=== PATIENT | male | born 1935 | race Caucasian/White ===

== ENCOUNTER 2018-09-22 04:18 | Inpatient (IN) | payer MEDICARE ==
[2018-09-22 04:56] LABS: #Basophils 0.1 thou/uL (0.0-0.2); #Eosinphils 0.2 thou/uL (0.0-0.7); #Lymphocytes 3.4 thou/uL (1.20-3.40); #Monocytes 1.2 thou/uL (0.11-0.59); #Neutrophils 9.5 thou/uL (1.40-6.50); %Basophils 0.4 % (0.0-1.0); %Eosinophils 1.6 % (0.0-10.0); %Lymphocytes 23.9 % (21.0-51.0); %Neutrophils 66.1 % (42.0-75.0); Hemoglobin 13.5 g/dL (14.0-18.0); Mean Corpuscular HGB CONC 34.3 g/dL (32.0-36.0); Mean Corpuscular Hemoglobin 33.5 pg (27.0-31.0); Mean Corpuscular Volume 97.6 fL (78.0-98.0); Mean Platelet Volume 7.2 fL (7.4-10.4); Platelet Count 210 thou/uL (130-400); RBC Distribution Width 11.9 % (11.5-14.5); Red Blood Cell (RBC) Count 4.03 mill/uL (4.70-6.10); White Blood Cell (WBC) Count 14.3 thou/uL (4.8-10.8)
[2018-09-22 05:10] LABS: Bilirubin Negative (Negative); Blood, Urine Negative (Negative); Clarity CLEAR (Clear); Glucose, Urine (Dipstick) Negative (Negative); Leukocyte Negative (Negative); Nitrite Negative (Negative); Protein, Urine (Dipstick) Negative (Neg-Trace); Urobilinogen 0.2 mg/dL (0.2-1.0); pH, Urine 6.5 (5.0-9.0)
[2018-09-22 05:22] LABS: ALT (SGPT) 25 U/L (8-55); AST (SGOT) 20 U/L (5-34); Alkaline Phosphatase 89 U/L (40-150); Anion Gap 12 mmol/L (10-20); BUN (Urea Nitrogen) 19 mg/dL (8.4-25.7); Bilirubin, Total 0.4 mg/dL (0.2-1.2); CK (CPK) 40 U/L (30-200); CKMB 1.9 ng/mL (0-6.6); Calc. Creatinine Clearance 0 mL/min (70-130); Calcium 8.9 mg/dL (7.8-10.44); Carbon Dioxide 20 mmol/L (23-31); Chloride 104 mmol/L (98-107); Estimated GFR-MDRD 73; Globulin 3.1 g/dL (2.4-3.5); Glucose 104 mg/dL (83-110); Lipase 32 U/L (8-78); Magnesium 2.3 mg/dL (1.6-2.6); Potassium 4.4 mmol/L (3.5-5.1); Protein, Total 7.1 g/dL (5.8-8.1); Sodium 132 mmol/L (136-145); Troponin I 0.024 ng/mL (< 0.028)
[2018-09-22] MEDS ORDERED: Metoprolol Tartrate 5 MG/5 ML VIAL ONE (05:34)
[2018-09-22] MEDS ORDERED: Magnesium 2 GM/50 ML 2 GM in Premix Bag 1 BAG IVPB SCH (05:45)
[2018-09-22] MEDS ORDERED: Sodium Chloride 0.45% 1,000 ML IV SCH (07:24)
[2018-09-22 07:36] VITALS: BMI 28.5
--- NOTE | 2018-09-22 08:43 | RAD ---
CHEST 1 VIEW: Date: 09/22/18 INDICATION: Heart palpitations. COMPARISON: Prior dated 07/15/16. IMPRESSION: Right subclavian central venous catheter has been removed. Aortic valvular prosthesis is unchanged. C ardiomegaly persists. Lungs are clear. Costophrenic angles are excluded. No pneumothorax is evident. POS: [facility]
[2018-09-22] MEDS ORDERED: Aspirin 325 MG TAB PO PRN (08:47)
[2018-09-22] MEDS ORDERED: Acetaminophen 325 MG TAB PO PRN (08:47)
[2018-09-22] MEDS ORDERED: Acetaminophen 650 MG Suppository PR PRN (08:47)
[2018-09-22] MEDS ORDERED: PROVENTIL INHALER 6.7 G (200 INHALATIONS) INH PRN (08:47)
[2018-09-22] MEDS ORDERED: Aspirin 325 mg Enteric Coated Tablet PO SCH (09:00)
[2018-09-22] MEDS ORDERED: Enoxaparin Sodium 40 MG/0.4 ML SYRINGE SC SCH (09:30)
[2018-09-22] MEDS: Ramipril 5 MG CAP PO SCH (09:45)
[2018-09-22 09:52] LABS: CKMB 1.8 ng/mL (0-6.6); Troponin I 0.027 ng/mL (< 0.028)
[2018-09-22] MEDS: Nitroglycerin 2% Ointment 1 INCH/1 GM Packet TOP SCH ×2 (14:54→21:55)
[2018-09-22] MEDS: Carvedilol 6.25 MG TAB PO SCH (16:26)
[2018-09-22 18:03] LABS: Troponin I 0.023 ng/mL (< 0.028)
[2018-09-22] MEDS: Simvastatin 40 MG TAB PO SCH (21:15)
[2018-09-22] MEDS: Ezetimibe 10 MG TAB PO SCH (21:16)
[2018-09-23 01:07] LABS: CKMB 1.4 ng/mL (0-6.6); Troponin I 0.023 ng/mL (< 0.028)
[2018-09-23 05:56] LABS: #Basophils 0.1 thou/uL (0.0-0.2); #Eosinphils 0.4 thou/uL (0.0-0.7); #Lymphocytes 3.1 thou/uL (1.20-3.40); #Neutrophils 6.3 thou/uL (1.40-6.50); %Basophils 0.8 % (0.0-1.0); %Eosinophils 3.3 % (0.0-10.0); %Lymphocytes 28.8 % (21.0-51.0); %Monocytes 9.2 % (0.0-10.0); %Neutrophils 57.9 % (42.0-75.0); Hemoglobin 13.7 g/dL (14.0-18.0); Mean Corpuscular HGB CONC 33.2 g/dL (32.0-36.0); Mean Corpuscular Hemoglobin 32.9 pg (27.0-31.0); Mean Platelet Volume 7.8 fL (7.4-10.4); Platelet Count 211 thou/uL (130-400); RBC Distribution Width 11.9 % (11.5-14.5); Red Blood Cell (RBC) Count 4.16 mill/uL (4.70-6.10); White Blood Cell (WBC) Count 10.9 thou/uL (4.8-10.8)
[2018-09-23 06:05] LABS: Anion Gap 12 mmol/L (10-20); BUN (Urea Nitrogen) 19 mg/dL (8.4-25.7); Calc. Creatinine Clearance 58 mL/min (70-130); Carbon Dioxide 23 mmol/L (23-31); Chloride 106 mmol/L (98-107); Estimated GFR-MDRD 73; Glucose 90 mg/dL (83-110); Potassium 4.8 mmol/L (3.5-5.1); Sodium 136 mmol/L (136-145)
[2018-09-23] MEDS: Nitroglycerin 2% Ointment 1 INCH/1 GM Packet TOP SCH ×4 (06:42→21:21)
[2018-09-23] MEDS: Carvedilol 6.25 MG TAB PO SCH ×2 (08:29→17:34)
[2018-09-23] MEDS: Ramipril 5 MG CAP PO SCH (08:29)
[2018-09-23] MEDS ORDERED: Enoxaparin Sodium 40 MG/0.4 ML SYRINGE SC SCH (09:00)
[2018-09-23] MEDS ORDERED: Enoxaparin Sodium 30 MG/0.3 ML SYRINGE SC SCH (11:30)
[2018-09-23] MEDS ORDERED: Dronedarone HCl 400 MG TAB PO SCH (12:00)
[2018-09-23] MEDS ORDERED: Diltiazem 125 MG in Sodium Chloride 0.9% 100 ML IVPB SCH ×2 (12:00→15:30)
[2018-09-23] MEDS: Dronedarone HCl 400 MG TAB PO SCH (17:34)
[2018-09-23] MEDS ORDERED: Enoxaparin Sodium 60 MG/0.6 ML SYRINGE SC SCH (21:00)
[2018-09-23] MEDS: Ezetimibe 10 MG TAB PO SCH (21:20)
[2018-09-23] MEDS: Simvastatin 40 MG TAB PO SCH (21:20)
[2018-09-23] MEDS: Apixaban 5 MG TAB PO SCH (21:20)
--- NOTE | 2018-09-24 07:49 | PRG ---
DATE OF SERVICE: 09/23/2018 SUBJECTIVE: The patient reports that he had been feeling well again until about 8 o'clock this morning when he started having some burning pain in his left chest. The patient reports that he had this in the past prior to his diagnosis of coronary artery disease and valve disease. He subsequently underwent a 1-vessel bypass and aortic valve replacement. The patient states that on at 1:30 in the afternoon, he was jogging from one room in his house to another, which he is prone to do from [id number] for a bit of exercise. At that time, he had the onset of the sensation of tachycardia, palpitations, and burning in his chest again. He feels confident that is the moment that he went back into atrial fibrillation. He has a history of atrial fibrillation following his bypass surgery that was temporary. He underwent cardioversion, which was only temporarily successful. His atrial fibrillation recurred fairly promptly. He was to come back the next day for a repeat cardioversion; however, he converted back to sinus rhythm at that time and has been in sinus rhythm since. The patient had atrial fibrillation with rapid ventricular response. In the emergency department, he received 2.5 mg of IV Lopressor and his heart rate improved. He has had fairly normal heart rate through the night, but is back in tachycardia this morning. SUBJECTIVE: VITAL SIGNS: Temperature 98.3, pulse 130s, respirations 20, O2 saturation 99% on room air, blood pressure is 150/107. GENERAL APPEARANCE: Age-appropriate male. He is in no distress. He is awake and alert, conversant. HEART: His heart is tachycardic and irregular without murmurs. LUNGS: Clear bilaterally. ABDOMEN: Soft, nontender, and nondistended. EXTREMITIES: Warm and dry. NEURO/PSYCH: Nonfocal. The patient has normal affect and behavior. CURRENT LABORATORY DATA: White count 10.9, hemoglobin 13.7, platelets 211. Chemistries are normal. Troponins stable at 0.023. Calcium 9, magnesium 2. Again, monitor shows that the patient in atrial fibrillation with RVR. IMPRESSION AND PLAN: 1. Atrial fibrillation with rapid ventricular response. We will give the patient a dose of IV Cardizem now. Did discuss with Dr. Hardy, he will be seeing the patient this morning. The patient's echocardiogram revealed concentric LVH, EF of 60% to 65%, moderately dilated left atrium, moderately enlarged right atrium, moderate MR, normally functioning bioprosthetic aortic valve, [id number] TR. If the patient responds to Cardizem adequately, may need to consider a drip, if Cardiology is not seen him and had other plans at that point, certainly the patient may still be a candidate for cardioversion. 2. Chest pain. The patient is reporting some burning pain in the left chest area. This seems to be associated with his tachycardia and atrial fibrillation. Primarily, he need to get rate control. The only concerning is that the patient had these symptoms prior to his previous bypass. He reports that he had a 50% lesion that was bypassed, but had another 20% lesion at that time that was not felt to be culprit and was not addressed. The patient continues to smoke and therefore, certainly at risk of developing further coronary artery disease. 3. Hypertension. The patient's blood pressure was elevated initially. It seems to be higher now as well, though was good throughout the night. We will see how he response to the Cardizem. He was on metoprolol at home. He has been changed to Coreg 12.5 b.i.d. we will await Cardiology input before pushing that any further. We will also continue with his Altace. 4. History of hyperlipidemia. Continue with Vytorin. 5. History of chronic obstructive pulmonary disease, on ProAir HFA. Will continue with albuterol p.r.n. 6. The patient is currently only on prophylactic doses of anticoagulation. We will give him an additional Lovenox now to get him back to the therapeutic range given his atrial fibrillation. Job ID: [id number]
[2018-09-24] MEDS: Apixaban 5 MG TAB PO SCH ×2 (08:15→21:38)
[2018-09-24] MEDS: Ramipril 5 MG CAP PO SCH (08:16)
[2018-09-24] MEDS: Dronedarone HCl 400 MG TAB PO SCH ×2 (08:16→17:04)
[2018-09-24] MEDS: Carvedilol 6.25 MG TAB PO SCH (08:16)
--- NOTE | 2018-09-24 10:15 | CON ---
DATE OF CONSULTATION: HISTORY OF PRESENT ILLNESS: Terry Inman is an 82-year-old white male, patient of Dr. Landers. In June 2016, he underwent aortic valve replacement for aortic stenosis with a #23 Magna bioprosthetic valve as well as CABG x1 of the saphenous vein graft to distal right coronary and ligation of left atrial appendage. He did develop atrial fibrillation postoperatively and was placed on amiodarone. He continued to be in atrial fibrillation and underwent transesophageal echo, which revealed a closed left atrial appendage with miniscule flow through the closure and there was no thrombus in left atrium. He underwent electrical cardioversion, but recurred with atrial fibrillation. Several days later he again underwent electrical cardioversion and retuned to sinus rhythm. Since that time, the amiodarone has been discontinued. He has had two or three episodes over the last year, where he feels heart beating very rapidly; however, it would return to normal within approximately 30 minutes. In September 2017, he underwent Lexiscan Cardiac PET scan, which was normal without evidence of ischemia. On September 20, he was walking in the house and had onset of very rapid heart beat as well as some burning on the left side of his chest and mild shortness of breath. This continued; he ultimately came to the emergency room for further care. He continues to have some of the episodes of left-sided chest burning, which appears to correlate with rapid heart rate. PAST MEDICAL HISTORY: Coronary artery disease; history of aortic stenosis, status post aortic valve replacement; hypertension; chronic bronchitis; emphysema. PAST SURGICAL HISTORY: CABG. HOME MEDICATIONS: 1. Altace 10 mg daily. 2. Aspirin 325 daily. 3. Atenolol 100 mg daily. 4. Simvastatin/Zetia daily. ALLERGIES: PENICILLIN. SOCIAL HISTORY: He continues to smoke 3/4 of pack per day. REVIEW OF SYSTEMS: Unremarkable. PHYSICAL EXAMINATION: VITAL SIGNS: Blood pressure 150/87, pulse of 129, irregularly irregular. HEENT: PERRL. NECK: Supple. CHEST: Clear. CARDIAC: Heart rhythm is irregularly irregular and tachycardiac at times. S1 and S2 are normal without any S3 or S4. There was a 2/6 systolic ejection murmur in the aortic area. ABDOMEN: Normal bowel sounds without tenderness or organomegaly. EXTREMITIES: Revealed no clubbing, cyanosis, or edema. NEUROLOGIC: Grossly intact. LABORATORY DATA: EKG reveals atrial fibrillation with rapid ventricular response, left axis deviation, and possible septal infarction. Cardiac enzymes have been normal. Sodium 136, potassium 4.8, chloride 106, carbon dioxide 23, BUN 19, and creatinine 0.99. TSH is normal. Hemoglobin 13.7, hematocrit 41.2, white count 10,900, platelets 211,000. IMPRESSION: 1. Recurrence of atrial fibrillation. He required electrical cardioversion twice after coronary artery bypass graft and aortic valve replacement. It historically sounds as if he has had one or two episodes over the last year that would last about 30 minutes. 2. Status post aortic valve replacement with bioprosthetic valve and coronary artery bypass graft x1 to the right coronary artery with ligation of left atrial appendage in June 2016. 3. Hypertension. 4. Hypercholesterolemia. 5. The patient continues to smoke. PLAN: Situation was discussed with the patient's family. It is felt that he should undergo anticoagulation. He will be started on Eliquis 5 mg b.i.d. Multaq 400 mg b.i.d. will be started and after he is adequately loaded, consideration can be given to transesophageal echo and electrical cardioversion. If, on transesophageal echo, the left atrial appendage opening continues to remain closed, then consideration will be given to permanent discontinuation of the anticoagulation. Cardizem 10 mg per hour IV will be started for better rate control. Job ID: [id number]
--- NOTE | 2018-09-24 10:44 | PDOC.PN ---
- Subjective Encounter Start Date: 09/24/18 Encounter Start Time: 10:43 Feels ok. Gets a little SOB with ambulation. Feels some palpitations time to time. - Objective Resuscitation Status - Order Detail: 09/22/18 08:42 Resuscitation Status Routine Resuscitation Status: FULL: Full Resuscitation Vital Signs & Weight: Vital Signs (12 hours) Temp Pulse Resp BP Pulse Ox 09/24/18 07:52 97.9 F 91 16 123/69 99 09/24/18 03:56 98.2 F 89 20 124/68 99 09/23/18 23:27 98.2 F 68 14 118/61 99 Weight Weight 148 lb 14.4 oz I&O: 09/23/18 09/24/18 09/25/18 06:59 06:59 06:59 Intake Total 1440 250 Output Total 1280 Balance 160 250 Result Diagrams: 09/23/18 05:26 09/23/18 05:26 Phys Exam - Physical Examination Constitutional: NAD Respiratory: no wheezing, no rales, no rhonchi, clear to auscultation bilateral Diminished BS throughout. Cardiovascular: no significant murmur, irregular Gastrointestinal: soft, non-tender, no distention, positive bowel sounds Musculoskeletal: no edema Neurological: non-focal Psychiatric: normal affect, A&O x 3 Dx/Plan (1) Atrial fibrillation Code(s): I48.91 - UNSPECIFIED ATRIAL FIBRILLATION Status: Acute Comment: Cardiology following. Started on Multaq. Rate initially tachy, but normalized. (2) Hypertension Code(s): I10 - ESSENTIAL (PRIMARY) HYPERTENSION Status: Acute Comment: Continue home meds. Altace, Coreg (3) Hyperlipidemia Code(s): E78.5 - HYPERLIPIDEMIA, UNSPECIFIED Status: Acute Comment: Continue home dose of statin and Zetia. (4) Chest pain Code(s): R07.9 - CHEST PAIN, UNSPECIFIED Status: Acute Comment: Appears to be rate related. Cardiology following. Addressing afib. - Plan * Loading on Multaq. On Eliquis. When loaded, will get SHAKIR. If atrial appendage closure is intact, DC anticoagulation and consider DCCV. * Ok for patient to ambulate as tolerated.
[2018-09-24] MEDS: Simvastatin 40 MG TAB PO SCH (21:38)
[2018-09-24] MEDS: Ezetimibe 10 MG TAB PO SCH (21:38)
[2018-09-25] MEDS: Dronedarone HCl 400 MG TAB PO SCH (08:22)
[2018-09-25] MEDS: Ramipril 5 MG CAP PO SCH (08:22)
[2018-09-25] MEDS: Apixaban 5 MG TAB PO SCH (10:15)
[2018-09-25 12:16] VITALS: BP 116/56; TEMP 97.8
== END 2018-09-25 15:08 | disposition home or self-care (01) | DRG 310 ==
LOC: ERS 04:18 → 2SW 07:18 → OBSVTOIN 09-23 13:45
PROVIDERS: ADMIT Internal Medicine; ATTEND Internal Medicine
PROC: B246ZZZ Ultrasonography of Right and Left Heart (ICD-10-PCS; principal; 2018-09-22)
DX: I48.91 Unspecified atrial fibrillation (principal); Z95.1 Presence of aortocoronary bypass graft; Z95.2 Presence of prosthetic heart valve; I25.10 Atherosclerotic heart disease of native coronary artery without angina pectoris; I10 Essential (primary) hypertension; Z79.02 Long term (current) use of antithrombotics/antiplatelets; F17.210 Nicotine dependence, cigarettes, uncomplicated; E78.5 Hyperlipidemia, unspecified; E78.2 Mixed hyperlipidemia; J44.9 Chronic obstructive pulmonary disease, unspecified; R07.9 Chest pain, unspecified
CPT/HCPCS: 36415; 71045; 80048; 80053; 81003; 82553; 83690; 83735; 84443; 84484; 85025; 93005; 93306; 96365; 96375; J1650; J7050

== ENCOUNTER 2019-04-11 10:37 | Outpatient (CLI) | payer MEDICARE ==
--- NOTE | 2019-04-11 12:19 | RAD ---
CHEST TWO VIEWS: HISTORY: Dyspnea. COMPARISON: 09/22/2018 FINDINGS: Heart size is mildly enlarged. There is a calcified granuloma in the right lung base. No pneumothor ax. No effusion. Scarring in the lung apices. The pulmonary arteries are mildly dilated. Multiple midline sternotomy wires. There are mitral naida lar calcifications. There appears to be a prosthetic aortic valve. IMPRESSION: Chronic findings. No acute intrathoracic abnormality. POS: [facility]
== END 2019-04-11 10:38 | disposition home or self-care (01) ==
LOC: RAD 10:37
PROVIDERS: ATTEND Internal Medicine Pulmonary Disease
DX: R06.00 Dyspnea, unspecified (principal); J84.10 Pulmonary fibrosis, unspecified; I51.7 Cardiomegaly; I28.1 Aneurysm of pulmonary artery; I34.8 Other nonrheumatic mitral valve disorders; J98.4 Other disorders of lung
CPT/HCPCS: 71046

== ENCOUNTER 2019-09-09 03:43 | Inpatient (IN) | payer MEDICARE ==
[2019-09-09] MEDS ORDERED: PROVENTIL INHALER 6.7 G (200 INHALATIONS) INH PRN (05:34)
[2019-09-09] MEDS ORDERED: Acetaminophen 500 MG TAB PO PRN (05:34)
[2019-09-09] MEDS ORDERED: Calcium Carbonate 500 MG ChewTAB PO PRN (05:34)
[2019-09-09] MEDS ORDERED: Ondansetron PF 4 MG/2 ML Vial IVP PRN (05:34)
[2019-09-09] MEDS ORDERED: Diabetic Tussin 200 MG/10 ML UDCUP PO PRN (05:34)
[2019-09-09] MEDS ORDERED: hydrALAZINE 20 MG/ML VIAL SLOW IVP PRN (05:34)
[2019-09-09] MEDS ORDERED: Ondansetron ODT 4 MG TAB PO PRN (05:34)
[2019-09-09] MEDS ORDERED: Benzonatate 100 MG CAP PO PRN (05:34)
[2019-09-09] MEDS ORDERED: Nitroglycerin 50 MG/250 ML BOT 250 ML IVPB SCH (05:45)
[2019-09-09 06:25] VITALS: BMI 24.3
[2019-09-09 06:31] LABS: Troponin I 0.083 ng/mL (< 0.028)
[2019-09-09] MEDS: Furosemide 40 MG/4 ML VIAL SLOW IVP SCH ×2 (07:59→15:23)
[2019-09-09] MEDS: Dronedarone HCl 400 MG TAB PO SCH ×2 (07:59→17:05)
[2019-09-09] MEDS: Apixaban 5 MG TAB PO SCH ×2 (07:59→20:49)
[2019-09-09] MEDS: Famotidine 20 MG TAB PO SCH ×2 (08:00→20:49)
[2019-09-09] MEDS: Ramipril 5 MG CAP PO SCH (08:01)
[2019-09-09] MEDS: Aspirin 81 mg Enteric Coated Tablet PO SCH (08:01)
[2019-09-09] MEDS: Nicotine 14 MG PATCH TD SCH (08:12)
--- NOTE | 2019-09-09 08:18 | RAD ---
CHEST 2 VIEWS: DATE: 09/09/2019. COMPARISON: 04/11/2019. HISTORY: Pulmonary edema. FINDINGS: Midline sternotomy wires and mechanical cardiac valve again noted. Mild increased linear interstitia l density with pulmonary hyperinflation. New small bilateral pleural effusions. Mild increased line ar interstitial density with pulmonary hyperinflation. IMPRESSION: Interstitial prominence and pulmonary hyperinflation suggests chronic obstructive pulmonary disease i n the proper clinical setting. There are new small bilateral pleural effusions, which may be related to a degree of pulmonary edema. POS: [facility]
[2019-09-09] MEDS ORDERED: Spironolactone 25 MG TAB PO SCH (09:00)
[2019-09-09] MEDS ORDERED: Atenolol 50 MG TAB PO SCH (09:00)
--- NOTE | 2019-09-09 09:51 | HP ---
PRIMARY CARE PROVIDER: Letty Boucher MD. PRIMARY CASTING ASSISTANT: Ludin Landers MD. CHIEF COMPLAINT: Shortness of breath. HISTORY OF PRESENT ILLNESS: This is an 83-year-old male, who initially presented to [facility] complaining of severe shortness of breath, worsening in the last 12 hours. The patient noted increased shortness of breath over the last 72 hours, culminating into the last 12 hours, requiring him to sit up and take deep breaths without relief. The patient denied any trauma, fever, recent travel or family members with illness. The patient denied any increased lower extremity swelling, but noted worsening shortness of breath with mild or minimal exertion. The patient states he was hyperventilating and struggling for air. The family became concerned calling EMS personnel at which point patient was evaluated in the [facility]. Upon presentation in the emergency room, the patient's blood pressure was noted 268/129 with a respiratory rate of 40 and an O2 saturation of 88% on room air. Initial chest imaging showed infiltrate in the right lower lobe and patient was treated with oxygen supplementation in addition to magnesium sulfate IV, Solu-Medrol, Lasix 40 mg IV push, DuoNeb and initiated on a nitroglycerin drip. The patient was also placed on BiPAP noninvasive mechanical ventilation initially, however, was able to wean off by the time he was transferred to [facility] Emergency Room. The patient denies having any similar events in the past or difficulty with pulmonary edema. The patient does admit to history of atrial fibrillation, treated with various medications including current Multaq, Tenormin, and Eliquis. The patient denied any specific change to his activity level but does admit to increased cough with the recent cold weather changes. The patient does admit to continuing to smoke up to a pack of cigarettes daily over the last 30 years. PAST MEDICAL HISTORY: 1. Tobacco abuse, ongoing. 2. Chronic obstructive pulmonary disease. 3. Hypertension. 4. Coronary artery disease. 5. Chronic bronchitis. 6. Chronic anticoagulation with Eliquis. 7. History of paroxysmal atrial fibrillation. 8. Moderate to severe aortic stenosis status post aortic valve replacement. 9. Dyslipidemia. PAST SURGICAL HISTORY: 1. Status post cardiac catheterization. 2. Status post coronary artery bypass grafting. 3. Status post electrical cardioversion secondary to atrial fibrillation. CURRENT MEDICATIONS: 1. Aspirin 325 mg p.o. daily. 2. Tenormin 100 mg p.o. daily. 3. Ramipril 10 mg p.o. daily. 4. Vytorin 10/40 mg 1 tablet p.o. daily. 5. ProAir HFA 2 puffs inhaled q.6 hours p.r.n. 6. Multaq 400 mg p.o. b.i.d. 7. Eliquis 5 mg p.o. b.i.d. ALLERGIES: PENICILLIN. FAMILY HISTORY: Father with myocardial infarction, at 74 years of age. Mother with complications of chronic kidney disease. SOCIAL HISTORY: The patient is accompanied by his and daughter in the emergency room. Smokes up to a pack of cigarettes daily for 50+ years. Occasional alcohol and no illicit drugs. Functional of all activities of daily living. REVIEW OF SYSTEMS: CONSTITUTIONAL: Negative for weight loss or gain, ability to conduct usual activities. SKIN: Negative for rash, itching. EYES: Negative for double vision, pain. ENT/MOUTH: Negative for nose bleeding, neck stiffness, pain, tenderness. CARDIOVASCULAR: Negative for palpitations, dyspnea on exertion, orthopnea. RESPIRATORY: Negative for shortness of breath, wheezing, cough, hemoptysis, fever or night sweats. GASTROINTESTINAL: Negative for poor appetite, abdominal pain, heartburn, nausea, vomiting, constipation, or diarrhea. GENITOURINARY: Negative for urgency, frequency, dysuria, nocturia. MUSCULOSKELETAL: Negative for pain, swelling. NEUROLOGIC/PSYCHIATRIC: Negative for anxiety, depression. ALLERGY/IMMUNOLOGIC: Negative for skin rash, bleeding tendency. Otherwise negative except as stated per HPI. PHYSICAL EXAMINATION: VITAL SIGNS: On admission, blood pressure 268/129, pulse 88, respiratory rate 40, temperature 98.3 degrees Fahrenheit, O2 saturation 88% on room air. GENERAL APPEARANCE: This is an 83-year-old male, alert and oriented x3, pleasant, responsive, in no acute distress. HEENT: Pupils are equal, round, reactive to light and accommodation. Extraocular muscles are intact. No scleral icterus. No conjunctival injection. Nares patent. OP is clear. Teeth in fair repair. NECK: Supple. No cervical adenopathy. No thyromegaly. No carotid bruits. No JVD appreciated. Cervical spine with full active and passive range of motion. No meningeal signs noted. CHEST: Diminished breath sounds in the bases bilaterally with occasional crackles, right greater than left lung base. CARDIOVASCULAR: S1, S2 with 1 to 2/6 systolic ejection murmur in the right upper sternal border. ABDOMEN: Rounded, soft, nontender, and nondistended. Bowel sounds are positive in all 4 quadrants. There is no hepatosplenomegaly. No abdominal bruits, no rebound or guarding appreciated. EXTREMITIES: Warm and dry with fair turgor. No clubbing, cyanosis, or asymmetric edema appreciated. Pulses are palpable distally at the dorsalis pedis, posterior tibial, and popliteal arteries bilaterally. Capillary refill less than 2 seconds. NEUROLOGIC: Cranial nerves 2 through 12 are grossly intact. No focal or lateralizing signs appreciated. PERTINENT LABORATORY AND X-RAY FINDINGS: Sodium 136, potassium 5.0, chloride 108, CO2 of 19, BUN 15, creatinine 1.16, estimated GFR of 60, glucose 138, and calcium 9.3. LFTs within normal limits. Troponin I 0.012. BNP 1083, previously noted 459 on 07/09/2016. CBC showed a white blood cell count of 12.8, hemoglobin 12.6, hematocrit 39.2, MCV 101, platelet count 176 with 68% neutrophils. Venous blood gas dated 09/09/2019 showed a pH of 7.42, pCO2 of 27, PO2 of 214, bicarb 17.3. Portable chest x-ray dated 09/09/2019 showed right lower lobe infiltrate with associated pulmonary edema and questionable early infiltrate, right greater than left. EKG dated 09/09/2019, by my interpretation, shows sinus mechanism, heart rates in the 80s, normal R-wave progression noted in the precordial leads. Peak T-waves in leads V3 through V6. ASSESSMENT AND PLAN: 1. Acute congestive heart failure exacerbation. The patient will be admitted to the Critical Care Unit. The patient with apparent flash pulmonary edema, improved with IV Lasix and aggressive pulmonary supportive management. Check 2D transthoracic echocardiogram. Exact etiology unclear. Consult Cardiology Service in the a.m. Continue Lasix 40 mg IV b.i.d. Check magnesium and TSH level. 2. Acute hypoxic respiratory failure secondary to #1. Initial management with BiPAP noninvasive mechanical ventilation, transitioning to oxygen via nasal cannula. Improved after IV Lasix administration. Continue oxygen support and monitor clinical response. 3. Acute kidney injury on chronic kidney disease stage 3. Avoid nephrotoxic agents and limit contrast exposure. Serial creatinine monitoring. 4. Chronic anticoagulation with Eliquis. Continue Eliquis 5 mg p.o. b.i.d. 5. Tobacco abuse. We will offer smoking cessation resources prior to discharge. Nicotine patch transdermally daily. 6. Prophylaxis. SCDs while in bed. Pepcid 20 mg p.o. b.i.d. CODE STATUS: Full. Surrogate medical decision maker is the patient's spouse. Job ID: [id number]
--- NOTE | 2019-09-09 10:09 | CON ---
DATE OF CONSULTATION: HISTORY OF PRESENT ILLNESS: The patient is an 83-year-old gentleman with a history of coronary artery disease status post coronary artery bypass graft surgery and aortic valve replacement, who presents with increasing dyspnea. The patient has a long history of coronary artery disease status post coronary artery bypass graft surgery x1 and aortic valve replacement in 2016. The patient also has a history of atrial fibrillation. He had been previously treated with Multaq. He also has undergone left atrial appendage ligation. The patient was in his usual state of health when he noted having increasing dyspnea. The patient is noted having increasing dyspnea. He states he had PND and orthopnea. The patient also reported some burning in his chest. The patient denies having any present chest discomfort. PAST MEDICAL HISTORY: 1. Coronary artery disease. 2. Aortic valve replaced. 3. Dyslipidemia. 4. Emphysema. PAST SURGICAL HISTORY: He has had coronary artery bypass graft surgery. ALLERGIES: PENICILLIN. SOCIAL HISTORY: Long history of tobacco abuse. PHYSICAL EXAMINATION: GENERAL: This is a middle-aged gentleman with a blood pressure 135/53. NECK: No jugular venous distention. LUNGS: A few crackles in both bases. HEART: Regular rate and rhythm. Normal S1 and S2. 2/6 systolic murmur. ABDOMEN: Nondistended. EXTREMITIES: No edema. VASCULAR: Radial pulses, 2+. LABORATORY DATA: Sodium 136, potassium 5.0, chloride 109, bicarbonate was 19, BUN 15, creatinine 1.1. Troponin 0.03. His white blood cell count 12.8, hemoglobin 12.6, hematocrit 39.2, and his platelets 176. His EKG revealed him to have normal sinus rhythm with sinus arrhythmia and left anterior fascicular block. IMPRESSION: 1. Hypertensive crisis. 2. History of congestive heart failure secondary to diastolic dysfunction. 3. History of aortic valve replacement. 4. History of aortic coronary artery bypass graft surgery. 5. History of paroxysmal atrial fibrillation. 6. Status post left atrial appendage ligation. 7. Continued tobacco abuse. This gentleman presented with a hypertensive crisis. His systolic blood pressure was documented over 250. The patient states he has been compliant with his medications and low-sodium diet. From a cardiac standpoint, he is on IV nitroglycerin. The patient will need to be on diuretics and have better monitor on his blood pressure. We would recommend adding probably spironolactone. We will follow this patient with you through his hospitalization. Critical care note time 1 hour. Please call my office. Job ID: [id number]
[2019-09-09 12:52] LABS: Troponin I 0.046 ng/mL (< 0.028)
[2019-09-09] MEDS: Simvastatin 40 MG TAB PO SCH (20:49)
[2019-09-09] MEDS: Ezetimibe 10 MG TAB PO SCH (20:49)
[2019-09-09] MEDS ORDERED: Non-Formulary Item 1 EACH (Ezetimibe/Simvastatin [Vytorin] 1 TABLET) PO SCH (21:00)
--- NOTE | 2019-09-09 23:50 | CON ---
DATE OF CONSULTATION: HISTORY OF PRESENT ILLNESS: Mr. Inman is an 83-year-old male who was admitted early this morning with hypertension and shortness of breath. Blood pressure is now controlled and he is diuresed and says he feels back to normal. He said he started having shortness of breath yesterday evening and this progressed to a point where he had to come to the emergency room. He was subsequently transferred here from [place]. He was 268/129. He says he takes his blood pressure medicine like he is supposed to, but apparently he is only taking his blood pressure medicines in the morning. He does not check his blood pressure at home, but checks it when he goes to the [employer] drug store. PAST MEDICAL HISTORY: 1. Remarkable for atrial fibrillation. 2. Reported history of COPD. 3. History of hypertension. 4. History of coronary artery disease. 5. History of anticoagulation for AFib. 6. History of obesity. 7. History of aortic valve replacement. 8. History of lipid disorder. 9. History of coronary artery bypass grafting. 10. History of cardioversion in the past. MEDICATIONS: Prior to admission, he was on: 1. Aspirin. 2. Tenormin. 3. Ramipril. 4. Vytorin. 5. ProAir. 6. Multaq. 7. Eliquis. ALLERGIES: PENICILLIN. FAMILY HISTORY: Positive for vascular disease. SOCIAL HISTORY: He smokes a pack a day. He is not a daily drinker. REVIEW OF SYSTEMS: Otherwise negative. PHYSICAL EXAMINATION: VITAL SIGNS: Blood pressure 141/58, heart rate 58. He is afebrile, respiratory rate is 18. HEAD AND NECK: Unremarkable. LUNGS: Clear. HEART: Regular rhythm. S1, S2 are normal. ABDOMEN: Soft and nontender. EXTREMITIES: Without clubbing, cyanosis or edema. IMAGING STUDIES: Chest radiograph suggestive of mild interstitial edema. IMPRESSION: Hypertensive pulmonary edema dramatically improved with control of his blood pressure and diuresis. He will be transferred out of the Critical Care Unit to regular room on telemetry. Job ID: [id number]
[2019-09-10 04:45] LABS: Hemoglobin 11.7 g/dL (14.0-18.0); Mean Corpuscular HGB CONC 34.8 g/dL (32.0-36.0); Mean Corpuscular Hemoglobin 34.5 pg (27.0-31.0); Mean Corpuscular Volume 99.2 fL (78.0-98.0); Mean Platelet Volume 8.2 fL (7.4-10.4); Platelet Count 182 thou/uL (130-400); RBC Distribution Width 11.2 % (11.5-14.5); White Blood Cell (WBC) Count 15.8 thou/uL (4.8-10.8)
[2019-09-10 04:46] LABS: Band 1 % (5-11); Lymphocytes 8 % (21-51); MDiff Complete? YES; Monocytes 7 % (0-10); Neutrophil 84 % (42-75); Platelet Morphology Comment Appears Adequate
[2019-09-10 04:58] LABS: Anion Gap 15 mmol/L (10-20); BUN (Urea Nitrogen) 34 mg/dL (8.4-25.7); Calc. Creatinine Clearance 38 mL/min (70-130); Calcium 9.7 mg/dL (7.8-10.44); Carbon Dioxide 23 mmol/L (23-31); Chloride 103 mmol/L (98-107); Estimated GFR-MDRD 46; Glucose 156 mg/dL (83-110); Potassium 4.4 mmol/L (3.5-5.1); Sodium 137 mmol/L (136-145)
[2019-09-10] MEDS: Furosemide 40 MG/4 ML VIAL SLOW IVP SCH ×2 (05:34→14:31)
[2019-09-10] MEDS: Nicotine 14 MG PATCH TD SCH (05:36)
[2019-09-10] MEDS: Dronedarone HCl 400 MG TAB PO SCH ×2 (09:40→17:40)
[2019-09-10] MEDS: Famotidine 20 MG TAB PO SCH (09:40)
[2019-09-10] MEDS: NIFEdipine XL 60 MG TAB PO SCH (09:41)
[2019-09-10] MEDS: Aspirin 81 mg Enteric Coated Tablet PO SCH (09:41)
[2019-09-10] MEDS: Ramipril 5 MG CAP PO SCH (09:41)
[2019-09-10] MEDS: Apixaban 5 MG TAB PO SCH ×2 (09:42→21:56)
--- NOTE | 2019-09-10 13:55 | PDOC.HOSPP ---
- Subjective Encounter Date: 09/10/19 Encounter Time: 07:40 Subjective: Pt seen for followup re: CHF exacerbation. Feels better, no complaints. - Objective Vital Signs & Weight: Vital Signs (12 hours) Temp Pulse Resp BP BP Pulse Ox 09/10/19 12:00 98.4 F 61 18 158/72 H 95 09/10/19 09:40 95 09/10/19 08:00 98.4 F 61 18 158/72 H 95 09/10/19 07:57 97.8 F 64 20 157/68 H 97 09/10/19 03:00 98.1 F 61 18 144/64 H 99 Weight Weight 153 lb 8 oz Most Recent Monitor Data Heart Rate from ECG 62 NIBP 158/63 NIBP BP-Mean 94 Respiration from ECG 13 SpO2 97 I&O: 09/09/19 09/10/19 09/11/19 06:59 06:59 06:59 Intake Total 240 3620 400 Output Total 1100 3245 750 Balance -860 375 -350 Result Diagrams: 09/10/19 04:06 09/10/19 04:06 Additional Labs: labs and MARs reviewed by me EKG Reviewed by me: Yes (Tele: NSR) Hospitalist ROS - Review of Systems Respiratory: denies: cough, shortness of breath, SOB with excertion, pleuritic pain, wheezing Cardiovascular: denies: chest pain, palpitations, orthopnea, paroxysmal noc. dyspnea, edema, light headedness - Medication Medications: Active Medications Generic Name Dose Route Start Last Admin Trade Name Freq PRN Reason Stop Dose Admin Apixaban 5 mg 09/09/19 09:00 09/10/19 09:42 Eliquis PO 5 mg BID HERNAN Administration Aspirin 81 mg 09/09/19 09:00 09/10/19 09:41 Ecotrin PO 81 mg DAILY HERNAN Administration Dronedarone 400 mg 09/09/19 08:00 09/10/19 09:40 Multaq PO 400 mg BID-WM HERNAN Administration Ezetimibe 10 mg 09/09/19 21:00 09/09/19 20:49 Zetia PO 10 mg HS HERNAN Administration Furosemide 40 mg 09/09/19 06:00 09/10/19 05:34 Lasix SLOW IVP 40 mg 0600,1400 HERNAN Administration Nicotine 14 mg 09/09/19 06:00 09/10/19 05:36 Nicoderm Patch TD 14 mg Q24HR HERNAN Administration Nifedipine 60 mg 09/10/19 09:00 09/10/19 09:41 Procardia Xl PO 60 mg DAILY HERNAN Administration Ramipril 10 mg 09/09/19 09:00 09/10/19 09:41 Altace PO 10 mg DAILY HERNAN Administration Simvastatin 40 mg 09/09/19 21:00 09/09/19 20:49 Zocor PO 40 mg HS HERNAN Administration Sodium Chloride 10 ml 09/10/19 09:00 09/10/19 09:43 Flush - Normal Saline IVF 10 ml Q12HR HERNAN Administration - Exam General Appearance: NAD Eye: anicteric sclera ENT: moist mucosa Neck: supple Heart: RRR, no rubs Respiratory: CTAB Gastrointestinal: soft, non-tender Extremities: no clubbing Psychiatric: normal affect, normal behavior Hosp A/P (1) Acute diastolic heart failure, NYHA class 3 Code(s): I50.31 - ACUTE DIASTOLIC (CONGESTIVE) HEART FAILURE Status: Acute (2) Hypertensive urgency Code(s): I16.0 - HYPERTENSIVE URGENCY Status: Acute (3) COPD (chronic obstructive pulmonary disease) Status: Chronic (4) Hyperlipidemia Code(s): E78.5 - HYPERLIPIDEMIA, UNSPECIFIED Status: Chronic (5) PAF (paroxysmal atrial fibrillation) Code(s): I48.0 - PAROXYSMAL ATRIAL FIBRILLATION Status: Chronic - Plan plan discussed w/ family, out of bed/ambulate BP improved. Continue IV furosemide. Continue apixaban and Multaq. COPD stable.
[2019-09-10] MEDS: Ezetimibe 10 MG TAB PO SCH (21:56)
[2019-09-10] MEDS: Simvastatin 40 MG TAB PO SCH (21:56)
[2019-09-11] MEDS: Nicotine 14 MG PATCH TD SCH (05:54)
[2019-09-11] MEDS: Furosemide 40 MG/4 ML VIAL SLOW IVP SCH ×2 (05:54→13:24)
[2019-09-11] MEDS: Ramipril 5 MG CAP PO SCH (08:55)
[2019-09-11] MEDS: NIFEdipine XL 60 MG TAB PO SCH (08:55)
[2019-09-11] MEDS: Apixaban 5 MG TAB PO SCH (08:55)
[2019-09-11] MEDS: Aspirin 81 mg Enteric Coated Tablet PO SCH (08:55)
[2019-09-11] MEDS: Famotidine 20 MG TAB PO SCH (08:55)
[2019-09-11] MEDS: Dronedarone HCl 400 MG TAB PO SCH ×2 (08:55→16:59)
[2019-09-11] MEDS ORDERED: PROPOFOL 20 ML ONE (08:59)
[2019-09-11 12:58] LABS: Anion Gap 17 mmol/L (10-20); BUN (Urea Nitrogen) 50 mg/dL (8.4-25.7); Calc. Creatinine Clearance 22 mL/min (70-130); Calcium 9.1 mg/dL (7.8-10.44); Carbon Dioxide 20 mmol/L (23-31); Chloride 101 mmol/L (98-107); Estimated GFR-MDRD 25; Glucose 108 mg/dL (83-110); Potassium 5.5 mmol/L (3.5-5.1); Sodium 132 mmol/L (136-145)
[2019-09-11] MEDS ORDERED: Albuterol Sulfate 2.5 mg/3 ml Neb NEB SCH (13:15)
[2019-09-11] MEDS ORDERED: Sodium Chloride 0.9% 1,000 ML IV SCH ×2 (13:15→19:30)
--- NOTE | 2019-09-11 15:40 | PDOC.HOSPP ---
- Subjective Encounter Date: 09/11/19 Encounter Time: 15:39 Subjective: Pt seen for followup re: acute kidney injury. States he feels well. - Objective Vital Signs & Weight: Vital Signs (12 hours) Temp Pulse Resp BP Pulse Ox 09/11/19 13:59 72 16 09/11/19 11:32 98.8 F 61 16 130/59 L 99 09/11/19 08:55 99 09/11/19 08:13 97.6 F 62 15 141/63 H 99 09/11/19 05:50 97.7 F 57 L 18 112/58 L 98 Weight Weight 149 lb 6 oz Most Recent Monitor Data Heart Rate from ECG 62 NIBP 158/63 NIBP BP-Mean 94 Respiration from ECG 13 SpO2 97 I&O: 09/10/19 09/11/19 09/12/19 06:59 06:59 06:59 Intake Total 3620 1250 Output Total 3245 1855 Balance 375 -605 Result Diagrams: 09/10/19 04:06 09/11/19 12:18 Additional Labs: Labs and MARs reviewed by me EKG Reviewed by me: Yes (Tele: NSR) Hospitalist ROS - Review of Systems Constitutional: denies: fever, chills, sweats, weakness, malaise Cardiovascular: denies: chest pain, palpitations, orthopnea, paroxysmal noc. dyspnea, edema, light headedness Gastrointestinal: denies: nausea, vomiting, abdominal pain, diarrhea, constipation, melena, hematochezia - Medication Medications: Active Medications Generic Name Dose Route Start Last Admin Trade Name Freq PRN Reason Stop Dose Admin Albuterol Sulfate 10 mg 09/11/19 13:15 09/11/19 13:59 Ventolin NEB 09/11/19 17:00 10 mg NOW HERNAN Administration Aspirin 81 mg 09/09/19 09:00 09/11/19 08:55 Ecotrin PO 81 mg DAILY HERNAN Administration Dronedarone 400 mg 09/09/19 08:00 09/11/19 08:55 Multaq PO 400 mg BID-WM HERNAN Administration Ezetimibe 10 mg 09/09/19 21:00 09/10/19 21:56 Zetia PO 10 mg HS HERNAN Administration Famotidine 20 mg 09/11/19 09:00 09/11/19 08:55 Pepcid PO 20 mg DAILY HERNAN Administration Furosemide 40 mg 09/09/19 06:00 09/11/19 13:24 Lasix SLOW IVP 40 mg 0600,1400 HERNAN Administration Sodium Chloride 1,000 mls @ 75 mls/hr 09/11/19 13:15 09/11/19 13:28 Normal Saline 0.9% IV 1,000 mls .[id number] HERNAN Administration Nicotine 14 mg 09/09/19 06:00 09/11/19 05:54 Nicoderm Patch TD 14 mg Q24HR HERNAN Administration Nifedipine 60 mg 09/10/19 09:00 09/11/19 08:55 Procardia Xl PO 60 mg DAILY HERNAN Administration Simvastatin 40 mg 09/09/19 21:00 09/10/19 21:56 Zocor PO 40 mg HS HERNAN Administration Sodium Chloride 10 ml 09/10/19 09:00 09/11/19 08:56 Flush - Normal Saline IVF 10 ml Q12HR HERNAN Administration Sodium Polystyrene Sulfonate 30 gm 09/11/19 13:15 09/11/19 13:23 Kayexalate Oral Susp 15 Gm/60 Ml PO 09/11/19 17:00 30 gm NOW HERNAN Administration - Exam General Appearance: NAD Eye: anicteric sclera ENT: moist mucosa Neck: supple Heart: RRR Respiratory: CTAB Gastrointestinal: soft, non-tender Extremities: no clubbing Psychiatric: normal affect, normal behavior Hosp A/P (1) MADISON (acute kidney injury) Code(s): N17.9 - ACUTE KIDNEY FAILURE, UNSPECIFIED Status: Acute (2) Hyperkalemia Code(s): E87.5 - HYPERKALEMIA Status: Acute (3) Acute diastolic heart failure, NYHA class 3 Code(s): I50.31 - ACUTE DIASTOLIC (CONGESTIVE) HEART FAILURE Status: Acute (4) COPD (chronic obstructive pulmonary disease) Status: Chronic (5) Hyperlipidemia Code(s): E78.5 - HYPERLIPIDEMIA, UNSPECIFIED Status: Chronic (6) PAF (paroxysmal atrial fibrillation) Code(s): I48.0 - PAROXYSMAL ATRIAL FIBRILLATION Status: Chronic (7) Hypertensive urgency Code(s): I16.0 - HYPERTENSIVE URGENCY Status: Resolved - Plan plan discussed w/ family, PT/OT Hold ACEI, provide gentle hydration, consult nephrology. Administer kayexalate and beta agonist nebs, repeat potassium level. Reduce apixaban dose for renal function. BP improved. DC furosemide Continue Multaq. COPD stable.
--- NOTE | 2019-09-11 18:17 | CON ---
DATE OF CONSULTATION: REASON FOR CONSULTATION: Hyperkalemia and elevated creatinine. HISTORY OF PRESENT ILLNESS: This is an 83-year-old gentleman, who was admitted to ICU with a baseline creatinine of 1.5 and lower. The patient was diuresed and after control of his blood pressure, creatinine increased to 2.5. The patient did not receive any nephrotoxic medication. The patient denies any nausea, vomiting, or chest pain. PAST MEDICAL HISTORY: Significant for atrial fibrillation, COPD, hypertension, coronary artery disease, diastolic dysfunction, aortic valve replacement, mitral regurgitation, CABG, and cardioversion. HOME MEDICATION: List reviewed. HOSPITAL MEDICATION: List reviewed. ALLERGIES: REVIEWED. FAMILY HISTORY: Negative for ESRD. SOCIAL HISTORY: Positive for smoking. REVIEW OF SYSTEMS: A 15-point review of system was performed, negative except for positives noted above. GENERAL: HEAD: NECK: No swelling or lumps. NOSE: No epistaxis or discharge. EYES: No diplopia or pain. RESPIRATORY: CARDIOVASCULAR: GASTROINTESTINAL: /SHOE REPAIRER: MUSCULOSKELETAL: No joint pain. NEUROPSYCHIATRIC SYSTEMS: No suicidal ideation. No ideation. SKIN: Denies any rash or ulcer. CONSTITUTIONAL: No fever or chills. PHYSICAL EXAMINATION: GENERAL: The patient is awake and alert. VITAL SIGNS: Afebrile, pulse 61, breathing 16, and blood pressure 119/65. GENERAL APPEARANCE AND MENTAL STATUS: Fair. HEAD/NECK: Normocephalic. Atraumatic. EYES: EOMI. No deformity. EARS: Clear. No ulcers. NOSE: Intact. No lesions. MOUTH: Clear. No discharge. THROAT: Clear. No exudate. LUNGS: Clear. No crackles. CARDIAC: S1, S2. No rub. ABDOMEN: Benign. Bowel sounds positive. GENITALIA/RECTUM: Cardenas absent. BACK/EXTREMITIES: Edema 0+. NEUROLOGICAL: Alert and motor intact. SKIN: LABORATORY DATA: Reviewed. ASSESSMENT AND PLAN: 1. Acute kidney injury with chronic kidney disease, most likely due to decreased effective arterial blood volume. Agree with hydration. 2. Hypertension, stable. 3. Anemia, stable. 4. Medication based on GFR appropriate. 5. Hyperkalemia. We will recheck potassium. If elevated, we will consider renal replacement therapy. Job ID: [id number]
[2019-09-11 18:46] LABS: Anion Gap 14 mmol/L (10-20); BUN (Urea Nitrogen) 53 mg/dL (8.4-25.7); Calc. Creatinine Clearance 20 mL/min (70-130); Carbon Dioxide 26 mmol/L (23-31); Chloride 100 mmol/L (98-107); Estimated GFR-MDRD 22; Glucose 123 mg/dL (83-110); Potassium 4.2 mmol/L (3.5-5.1); Sodium 136 mmol/L (136-145)
--- NOTE | 2019-09-11 19:06 | DIS ---
DATE OF ADMISSION: 09/09/2019 DATE OF DISCHARGE: 09/11/2019 PRIMARY CARE PROVIDER: Dr. Letty Boucher. DISCHARGE DIAGNOSES: 1. Hypertensive urgency. 2. Acute diastolic heart failure, NYHA class III. 3. Pulmonary edema. 4. Acute kidney injury. 5. Acute hypoxic respiratory failure. 6. Ongoing tobacco use. CONDITION OF PATIENT ON THE DAY OF DISCHARGE: Stable. I assessed Mr. Inman on the day of discharge. He denies any chest pain or shortness of breath. Vital signs are stable. S1 and S2 are heard, regular. Lungs are clear to auscultation bilaterally. CONSULTATIONS DURING THIS HOSPITALIZATION: Cardiology, Dr. Landers and Pulmonary and Critical Care Medicine, Dr. Jacobs. DISCHARGE MEDICATIONS: 1. Apixaban 5 mg 2 times a day. 2. Vytorin 10/40 mg every evening. 3. Ramipril 10 mg daily. 4. Nicotine 14 mg patch daily. 5. Dronedarone 400 mg 2 times a day. 6. Procardia XL 60 mg daily. 7. Albuterol p.r.n. 8. Aspirin 81 mg daily. POST-DISCHARGE FOLLOWUP: With primary care provider in 3 days' time and with Cardiology Service in 1 week's time. HOSPITAL COURSE: Mr. Inman is a pleasant 83-year-old gentleman, who was admitted to [facility] on 09/09/2019, for hypertensive urgency and pulmonary edema. Please refer to Dr. Ryan's history and physical note dated 09/09/2019, for further details. He was treated with antihypertensives, with improvement in his blood pressure. He was also treated with nitrate drip. He improved clinically. He was seen by Cardiology and Pulmonology Services. 2D echocardiogram showed left ventricular ejection fraction of 60% to 65%, moderately dilated left atrium, mildly enlarged right atrium, mild concentric left ventricular hypertrophy, normal left ventricular size, impaired relaxation compatible with diastolic dysfunction, bioprosthetic valve, moderate tricuspid regurgitation, [id number] mitral regurgitation, and right ventricular systolic pressure. He improved clinically and is being discharged home in a stable condition. His creatinine increased to 1.47 on 09/10. At the time of this dictation, repeat creatinine level is pending. Depending on the outcome, the patient may be advised to change some of his medications or to follow up with primary care provider for rechecking creatinine level. Many thanks for allowing me to participate in your patient's care. Please feel free to contact me with any questions or concerns. DISCHARGE DESTINATION: Home. TIME SPENT: Total amount of time spent coordinating this discharge: 32 minutes. Job ID: [id number]
[2019-09-11] MEDS: Ezetimibe 10 MG TAB PO SCH (21:29)
[2019-09-11] MEDS: Simvastatin 40 MG TAB PO SCH (21:29)
[2019-09-11] MEDS: Apixaban 2.5 MG TAB PO SCH (21:30)
--- NOTE | 2019-09-11 22:20 | ULT ---
Exam: Bilateral renal ultrasound complete: HISTORY: Acute kidney injury COMPARISON: None FINDINGS: Right kidney: 10.3 x 4.4 x 4.1 cm Left kidney: 9.5 x 4.2 x 4.1 cm No renal hydronephrosis. No evidence for abnormal perinephric process. 4.3 x 5.0 cm right renal cyst. 0.8 x 1.7 cm mid left renal cyst. The bladder appeared unremarkable although ureteral jets were not documented. IMPRESSION: Bilateral renal cysts. No renal hydronephrosis.
[2019-09-12 04:44] LABS: #Basophils 0.1 thou/uL (0.0-0.2); #Eosinphils 0.2 thou/uL (0.0-0.7); #Neutrophils 6.2 thou/uL (1.40-6.50); %Basophils 0.9 % (0.0-1.0); %Eosinophils 2.2 % (0.0-10.0); %Lymphocytes 21.3 % (21.0-51.0); %Neutrophils 64.7 % (42.0-75.0); Hemoglobin 11.1 g/dL (14.0-18.0); Mean Corpuscular Hemoglobin 34.1 pg (27.0-31.0); Mean Platelet Volume 7.9 fL (7.4-10.4); Platelet Count 199 thou/uL (130-400); RBC Distribution Width 11.3 % (11.5-14.5); Red Blood Cell (RBC) Count 3.27 mill/uL (4.70-6.10); White Blood Cell (WBC) Count 9.5 thou/uL (4.8-10.8)
[2019-09-12 05:03] LABS: Anion Gap 10 mmol/L (10-20); BUN (Urea Nitrogen) 55 mg/dL (8.4-25.7); Calc. Creatinine Clearance 22 mL/min (70-130); Calcium 8.6 mg/dL (7.8-10.44); Carbon Dioxide 28 mmol/L (23-31); Chloride 103 mmol/L (98-107); Estimated GFR-MDRD 24; Glucose 88 mg/dL (83-110); Potassium 4.3 mmol/L (3.5-5.1); Sodium 137 mmol/L (136-145)
[2019-09-12] MEDS: Nicotine 14 MG PATCH TD SCH (05:19)
[2019-09-12] MEDS ORDERED: Sodium Chloride 0.9% 1,000 ML IV SCH (07:45)
[2019-09-12] MEDS: NIFEdipine XL 60 MG TAB PO SCH (08:26)
[2019-09-12] MEDS: Apixaban 2.5 MG TAB PO SCH ×2 (08:26→20:08)
[2019-09-12] MEDS: Famotidine 20 MG TAB PO SCH (08:26)
[2019-09-12] MEDS: Dronedarone HCl 400 MG TAB PO SCH ×2 (08:26→16:29)
[2019-09-12] MEDS: Aspirin 81 mg Enteric Coated Tablet PO SCH (08:26)
--- NOTE | 2019-09-12 10:56 | PRG ---
DATE OF SERVICE: 09/12/2019 SUBJECTIVE: An 83-year-old gentleman, being seen for acute kidney injury. The patient denied nausea, vomiting, or chest pain. OBJECTIVE: CONSTITUTIONAL: The patient is awake and alert. VITAL SIGNS: Pulse 75, breathing 16, and blood pressure 137/61. GENERAL APPEARANCE AND MENTAL STATUS: Fair. HEAD/NECK: Normocephalic. Atraumatic. EYES: EOMI. No deformity. EARS: Clear. No ulcers. NOSE: Intact. No lesions. MOUTH: Clear. No discharge. THROAT: Clear. No exudate. LUNGS: Clear. No crackles. CARDIAC: S1, S2. No rub. ABDOMEN: Benign. Bowel sounds positive. GENITALIA/RECTUM: Cardenas absent. BACK/EXTREMITIES: Edema 0+. NEUROLOGICAL: Alert and motor intact. SKIN: LYMPHATICS: LABORATORY DATA: Labs reviewed. ASSESSMENT AND PLAN: Chronic kidney disease stage 4 with acute kidney injury due to acute tubular necrosis, improved. Hypertension, stable. Anemia, stable. Hyperkalemia, improved. No indication for dialysis. Continue hydration. Job ID: [id number]
--- NOTE | 2019-09-12 10:59 | PDOC.HOSPP ---
- Subjective Encounter Date: 09/12/19 Encounter Time: 08:00 Subjective: Pt seen for followup re:MADISON. feels well, no complaints. - Objective Vital Signs & Weight: Vital Signs (12 hours) Temp Pulse Resp BP BP Pulse Ox 09/12/19 08:26 98 09/12/19 07:16 97.6 F 61 16 137/61 98 09/12/19 03:20 97.8 F 64 18 127/61 96 Weight Weight 147 lb 9 oz Most Recent Monitor Data Heart Rate from ECG 62 NIBP 158/63 NIBP BP-Mean 94 Respiration from ECG 13 SpO2 97 I&O: 09/11/19 09/12/19 09/13/19 06:59 06:59 06:59 Intake Total 1250 1985 Output Total 1855 900 Balance -605 1085 Result Diagrams: 09/12/19 04:28 09/12/19 04:28 Additional Labs: Labs and MARs reviewed by me EKG Reviewed by me: Yes (Tele: NSR) Hospitalist ROS - Review of Systems Cardiovascular: denies: chest pain, palpitations, orthopnea, paroxysmal noc. dyspnea, edema, light headedness Gastrointestinal: denies: nausea, vomiting, abdominal pain, diarrhea, constipation, melena, hematochezia - Medication Medications: Active Medications Generic Name Dose Route Start Last Admin Trade Name Antionette PRN Reason Stop Dose Admin Apixaban 2.5 mg 09/11/19 21:00 09/12/19 08:26 Eliquis PO 2.5 mg BID HERNAN Administration Aspirin 81 mg 09/09/19 09:00 09/12/19 08:26 Ecotrin PO 81 mg DAILY HERNAN Administration Dronedarone 400 mg 09/09/19 08:00 09/12/19 08:26 Multaq PO 400 mg BID-WM HERNAN Administration Ezetimibe 10 mg 09/09/19 21:00 09/11/19 21:29 Zetia PO 10 mg HS HERNAN Administration Famotidine 20 mg 09/11/19 09:00 09/12/19 08:26 Pepcid PO 20 mg DAILY HERNAN Administration Sodium Chloride 1,000 mls @ 200 mls/hr 09/12/19 07:45 09/12/19 08:26 Normal Saline 0.9% IV 09/12/19 12:44 1,000 mls .Q5H HERNAN Administration Nicotine 14 mg 09/09/19 06:00 09/12/19 05:19 Nicoderm Patch TD 14 mg Q24HR HERNAN Administration Nifedipine 60 mg 09/10/19 09:00 09/12/19 08:26 Procardia Xl PO 60 mg DAILY HERNAN Administration Simvastatin 40 mg 09/09/19 21:00 09/11/19 21:29 Zocor PO 40 mg HS HERNAN Administration Sodium Chloride 10 ml 09/10/19 09:00 09/12/19 08:27 Flush - Normal Saline IVF 10 ml Q12HR HERNAN Administration - Exam General Appearance: NAD Eye: anicteric sclera ENT: moist mucosa Neck: supple Heart: RRR Respiratory: CTAB Gastrointestinal: soft, non-tender Extremities: no edema Psychiatric: normal affect, normal behavior Hosp A/P (1) MADISON (acute kidney injury) Code(s): N17.9 - ACUTE KIDNEY FAILURE, UNSPECIFIED Status: Acute (2) Acute diastolic heart failure, NYHA class 3 Code(s): I50.31 - ACUTE DIASTOLIC (CONGESTIVE) HEART FAILURE Status: Acute (3) COPD (chronic obstructive pulmonary disease) Status: Chronic (4) Hyperlipidemia Code(s): E78.5 - HYPERLIPIDEMIA, UNSPECIFIED Status: Chronic (5) PAF (paroxysmal atrial fibrillation) Code(s): I48.0 - PAROXYSMAL ATRIAL FIBRILLATION Status: Chronic (6) Hypertensive urgency Code(s): I16.0 - HYPERTENSIVE URGENCY Status: Resolved (7) Hyperkalemia Code(s): E87.5 - HYPERKALEMIA Status: Resolved - Plan out of bed/ambulate Creatinine improved to 2.55, continue IV hydration. Hyperkalemia resolved. apixaban dose reduced for renal function. BP improved. Continue Multaq. COPD stable.
[2019-09-12] MEDS: Sodium Chloride 0.9% 1,000 ML IV SCH (14:05)
[2019-09-12] MEDS: Ezetimibe 10 MG TAB PO SCH (20:07)
[2019-09-12] MEDS: Simvastatin 40 MG TAB PO SCH (20:08)
[2019-09-13] MEDS: Sodium Chloride 0.9% 1,000 ML IV SCH ×2 (01:18→09:14)
[2019-09-13 05:00] LABS: #Eosinphils 0.5 thou/uL (0.0-0.7); #Lymphocytes 1.7 thou/uL (1.20-3.40); #Monocytes 0.8 thou/uL (0.11-0.59); #Neutrophils 5.3 thou/uL (1.40-6.50); %Basophils 0.5 % (0.0-1.0); %Eosinophils 6.5 % (0.0-10.0); %Lymphocytes 20.6 % (21.0-51.0); %Monocytes 9.1 % (0.0-10.0); %Neutrophils 63.2 % (42.0-75.0); Hemoglobin 10.4 g/dL (14.0-18.0); Mean Platelet Volume 7.8 fL (7.4-10.4); Platelet Count 183 thou/uL (130-400); RBC Distribution Width 11.2 % (11.5-14.5); Red Blood Cell (RBC) Count 3.14 mill/uL (4.70-6.10); White Blood Cell (WBC) Count 8.4 thou/uL (4.8-10.8)
[2019-09-13 05:10] LABS: Anion Gap 8 mmol/L (10-20); BUN (Urea Nitrogen) 31 mg/dL (8.4-25.7); Calc. Creatinine Clearance 42 mL/min (70-130); Calcium 8.4 mg/dL (7.8-10.44); Carbon Dioxide 23 mmol/L (23-31); Chloride 108 mmol/L (98-107); Estimated GFR-MDRD 52; Glucose 94 mg/dL (83-110); Potassium 4.2 mmol/L (3.5-5.1); Sodium 135 mmol/L (136-145)
[2019-09-13] MEDS: Nicotine 14 MG PATCH TD SCH (05:17)
[2019-09-13] MEDS: Aspirin 81 mg Enteric Coated Tablet PO SCH (08:39)
[2019-09-13] MEDS: Famotidine 20 MG TAB PO SCH (08:39)
[2019-09-13] MEDS: NIFEdipine XL 60 MG TAB PO SCH (08:39)
[2019-09-13] MEDS: Dronedarone HCl 400 MG TAB PO SCH (08:40)
[2019-09-13] MEDS: Apixaban 2.5 MG TAB PO SCH (08:40)
[2019-09-13 11:38] VITALS: BP 151/70; TEMP 98
--- NOTE | 2019-09-13 11:49 | PRG ---
DATE OF SERVICE: 09/13/2019 SUBJECTIVE: An 83-year-old gentleman is being seen for acute kidney injury. The patient denies any nausea, vomiting, or chest pain. OBJECTIVE: GENERAL: The patient is awake and alert. VITAL SIGNS: Pulse 75, breathing 16, blood pressure was 149/72. GENERAL APPEARANCE AND MENTAL STATUS: Fair. HEAD/NECK: Normocephalic. Atraumatic. EYES: EOMI. No deformity. EARS: Clear. No ulcers. NOSE: Intact. No lesions. MOUTH: Clear. No discharge. THROAT: Clear. No exudate. LUNGS: Clear. No crackles. CARDIAC: S1, S2. No rub. ABDOMEN: Benign. Bowel sounds positive. GENITALIA/RECTUM: Cardenas absent. BACK/EXTREMITIES: Edema 0+. NEUROLOGICAL: Alert and motor intact. SKIN: LYMPHATICS: LABORATORY DATA: Reviewed. IMPRESSION: 1. Acute kidney injury, improved. 2. Hypertension, stable. 3. Hyponatremia, stable. 4. Hyperkalemia, resolved. 5. No indication for dialysis. I will sign off on this patient. Please reconsult as needed. Job ID: [id number]
--- NOTE | 2019-09-13 12:17 | PDOC.CPN ---
- Subjective Date: 09/13/19 Time: 08:30 Interval history: The pt seen and examined. No overnight events. No cardiac complaints. - Objective Allergies/Adverse Reactions: Allergies Allergy/AdvReac Type Severity Reaction Status Date / Time Penicillins Allergy Unknown Verified 07/13/16 12:41 Visit Medications: Current Medications Acetaminophen (Tylenol) 1,000 mg PO Q6H PRN PRN Reason: Mild Pain (1-3) Albuterol Sulfate (Proventil Hfa) 2 puff INH Q4HR PRN PRN Reason: SOB &/or Wheezing Apixaban (Eliquis) 2.5 mg PO BID [facility] Last Admin: 09/13/19 08:40 Dose: 2.5 mg Aspirin (Ecotrin) 81 mg PO DAILY [facility] Last Admin: 09/13/19 08:39 Dose: 81 mg Benzonatate (Tessalon) 100 mg PO Q6H PRN PRN Reason: Cough Calcium Carbonate (Tums) 1,000 mg PO Q4H PRN PRN Reason: Heartburn or Indigestion Dronedarone (Multaq) 400 mg PO BID-WM [facility] Last Admin: 09/13/19 08:40 Dose: 400 mg Ezetimibe (Zetia) 10 mg PO HS [facility] Last Admin: 09/12/19 20:07 Dose: 10 mg Famotidine (Pepcid) 20 mg PO DAILY [facility] Last Admin: 09/13/19 08:39 Dose: 20 mg Guaifenesin (Robitussin Sf) 200 mg PO Q4H PRN PRN Reason: Cough Hydralazine HCl (Apresoline) 10 mg SLOW IVP Q4H PRN PRN Reason: SBP > 180 and HR < 70 Nitroglycerin/Dextrose (Nitroglycerin 50 Mg/250 Ml Bot) 250 mls @ 0 mls/hr IVPB INF [facility]; Protocol Sodium Chloride (Normal Saline 0.9%) 1,000 mls @ 100 mls/hr IV .Q10H [facility] Last Admin: 09/13/19 09:14 Dose: 1,000 mls Nicotine (Nicoderm Patch) 14 mg TD Q24HR [facility] Last Admin: 09/13/19 05:17 Dose: 14 mg Nifedipine (Procardia Xl) 60 mg PO DAILY [facility] Last Admin: 09/13/19 08:39 Dose: 60 mg Ondansetron HCl (Zofran Odt) 4 mg PO Q6H PRN PRN Reason: Nausea/Vomiting Ondansetron HCl (Zofran) 4 mg IVP Q6H PRN PRN Reason: Nausea/Vomiting Simvastatin (Zocor) 40 mg PO HS [facility] Last Admin: 09/12/19 20:08 Dose: 40 mg Sodium Chloride (Flush - Normal Saline) 10 ml IVF Q12HR [facility] Last Admin: 09/13/19 08:40 Dose: Not Given Sodium Chloride (Flush - Normal Saline) 10 ml IVF PRN PRN PRN Reason: Saline Flush Vital Signs & Weight: Vital Signs Temp Pulse Resp BP BP BP Pulse Ox 09/13/19 11:25 98 F 67 16 151/70 H 98 09/13/19 08:01 98.2 F 75 18 149/72 H 97 09/13/19 03:21 98.1 F 64 16 132/61 99 Weight 150 lb 4 oz - Physical Exam General: alert & oriented x3 Neck: supple neck Cardiac: regular rate and rhythm, S1/S2 Lungs: decreased breath sounds Neuro: cranial nerve 2-12 intact - Labs Result Diagrams: 09/13/19 04:32 09/13/19 04:32 Troponin/CKMB Troponin I 0.046 ng/mL (< 0.028) H 09/09/19 11:57 - Telemetry Sinus rhythms and dysrhythmias: sinus rhythm - Assessment/Plan Assessment/Plan: 1. Acute on Chronic diastolic HF - Not on Diuretic 2/2 MADISON; not on bblocker due to hx of COPD and bradycardia; not on LUIS/ARB due to hx of MADISON 2. Prox Afib with hx of DCCV - remains in SR; On Multaq and Eliquis; 3. CAD with hx of CABG - 4. hx of AV repair - 5. HTN - stable 6. HLD - On statin 7. COPD - MAR reviewed * Echo in 08/2019 with EF 60-65%, mod dilated LA, mild LVH, bioprosthetic Valve , mod TR, mild-mod MR
--- NOTE | 2019-09-13 17:54 | DIS ---
DATE OF ADMISSION: 09/09/2019 DATE OF DISCHARGE: 09/13/2019 PRIMARY CARE PROVIDER: Dr. Letty Boucher. DISCHARGE DIAGNOSES: 1. Hypertensive urgency. 2. Acute diastolic heart failure, NYHA class III. 3. Pulmonary edema. 4. Acute kidney injury. 5. Acute hypoxic respiratory failure. 6. Ongoing tobacco use. CONDITION OF THE PATIENT ON THE DAY OF DISCHARGE: I assessed Mr. Inman on the day of discharge. He denies any complaints. Vital signs are stable. S1 and S2 are heard, regular. Lungs are clear to auscultation bilaterally. CONSULTATIONS DURING THIS HOSPITALIZATION: 1. Cardiology, Dr. Landers. 2. Pulmonary and Critical Care Medicine, Dr. Jacobs. 3. Nephrology, Dr. Romero. DISCHARGE MEDICATIONS: 1. Vytorin 10/40 mg every evening. 2. Nicotine 14 mg patch daily. 3. Apixaban 5 mg 2 times a day. 4. Aspirin 81 mg daily. 5. Multaq 400 mg 2 times a day. 6. Procardia XL 60 mg daily. 7. ProAir HFA p.r.n. The patient's ramipril is on hold. He has been advised to have his blood work checked in 1 week's time and to discuss with primary care provider regarding resuming ramipril if creatinine has normalized. POST-DISCHARGE FOLLOWUP: With Dr. Letty Boucher on 09/16/2019, at 2:[address] Landers on 09/23/2019. HOSPITAL COURSE: Mr. Inman is a pleasant 83-year-old gentleman, who was admitted to [facility] on 09/09/2019, for pulmonary edema and hypertensive urgency. He improved with antihypertensives. He was seen by Cardiology, Pulmonology, and Nephrology Services during this hospitalization. 2D echocardiogram showed left ventricular ejection fraction of 60% to 65%, moderate dilatation of left atrium, mild enlargement of right atrium, mild concentric LVH , normal left ventricular size, impaired relaxation compatible with diastolic dysfunction, bioprosthetic valve, moderate tricuspid regurgitation, mild-to- moderate mitral regurgitation and right ventricular systolic pressure. He improved clinically in terms of hypertensive urgency and pulmonary edema; however, he was found to have acute kidney injury. He was treated with intravenous hydration with improvement of his creatinine to 1.32 on the day of discharge. He has been advised to hold LUIS inhibitor until creatinine can be rechecked and decision made regarding resuming LUIS inhibitor. He is being discharged home in a stable condition. DIET: Heart healthy. ACTIVITY: No restrictions. DISCHARGE DESTINATION: Home. TIME SPENT: Total amount of time spent coordinating this discharge: 31 minutes. Job ID: [id number] MTDD
== END 2019-09-13 13:26 | disposition home health service (06) | DRG 291 ==
LOC: ERS 03:43 → CCU 05:34 → 2NO 21:50
PROVIDERS: ADMIT Family Medicine; ATTEND Family Medicine
PROC: 5A09357 Assistance with Respiratory Ventilation, Less than 24 Consecutive Hours, Continuous Positive Airway Pressure (ICD-10-PCS; principal; 2019-09-09)
DX: I13.0 Hypertensive heart and chronic kidney disease with heart failure and stage 1 through stage 4 chronic kidney disease, or unspecified chronic kidney disease (principal); I50.33 Acute on chronic diastolic (congestive) heart failure; N17.0 Acute kidney failure with tubular necrosis; J96.01 Acute respiratory failure with hypoxia; E87.1 Hypo-osmolality and hyponatremia; N18.4 Chronic kidney disease, stage 4 (severe); I16.0 Hypertensive urgency; F17.200 Nicotine dependence, unspecified, uncomplicated; I08.1 Rheumatic disorders of both mitral and tricuspid valves; E78.5 Hyperlipidemia, unspecified; I48.0 Paroxysmal atrial fibrillation; J43.9 Emphysema, unspecified; D63.1 Anemia in chronic kidney disease; E87.5 Hyperkalemia; Z95.2 Presence of prosthetic heart valve; Z79.01 Long term (current) use of anticoagulants; Z79.899 Other long term (current) drug therapy; Z95.1 Presence of aortocoronary bypass graft; Z79.82 Long term (current) use of aspirin; Z88.0 Allergy status to penicillin
CPT/HCPCS: 36415; 71046; 76770; 80048; 83735; 83880; 84443; 85007; 85025; 85027; 93005; 93306; 93798; 94640; 96360; 99406; J1940; J2704; J7611

== ENCOUNTER 2019-09-17 12:41 | Outpatient (CLI) | payer MEDICARE ==
--- NOTE | 2019-09-17 13:01 | RAD ---
EXAM: Chest Two Views 09/17/2019 12:57 PM HISTORY: Dyspnea COMPARISON: April 11, 2019 FINDINGS: Heart: There is mild cardiomegaly. Aortic valvular prosthesis is unchanged. Prominent mitral annular calcifications are stable. Midline sternotomy changes are stable. Pulmonary vessels: There is mild pulmonary vascular congestion and mild interstitial edema Costophrenic angles: There are tiny bilateral pleural effusions. Lungs: No acute airspace consolidation. Pneumothorax: None. Osseous structures:There is diffuse osteopenia. Additional findings: None. IMPRESSION: Findings suspicious for mild CHF.
== END 2019-09-17 12:42 | disposition home or self-care (01) ==
LOC: RAD 12:41
PROVIDERS: ATTEND Internal Medicine Pulmonary Disease
DX: R06.00 Dyspnea, unspecified (principal)
CPT/HCPCS: 71046

== ENCOUNTER 2020-01-15 10:24 | Emergency (ER) | payer MEDICARE ==
[2020-01-15 10:55] LABS: #Eosinphils 0.4 thou/uL (0.0-0.7); #Lymphocytes 1.6 thou/uL (1.20-3.40); #Monocytes 0.9 thou/uL (0.11-0.59); %Basophils 0.4 % (0.0-1.0); %Eosinophils 3.6 % (0.0-10.0); %Lymphocytes 14.4 % (21.0-51.0); %Monocytes 8.6 % (0.0-10.0); Hemoglobin 14.2 g/dL (14.0-18.0); Mean Corpuscular HGB CONC 34.8 g/dL (32.0-36.0); Mean Corpuscular Volume 94.9 fL (78.0-98.0); Mean Platelet Volume 6.6 fL (7.4-10.4); Platelet Count 227 thou/uL (130-400); RBC Distribution Width 11.3 % (11.5-14.5); Red Blood Cell (RBC) Count 4.31 mill/uL (4.70-6.10); White Blood Cell (WBC) Count 10.9 thou/uL (4.8-10.8)
[2020-01-15 11:22] LABS: ALT (SGPT) 14 U/L (8-55); AST (SGOT) 23 U/L (5-34); Albumin 4.5 g/dL (3.4-4.8); Alkaline Phosphatase 103 U/L (40-110); Anion Gap 12 mmol/L (10-20); BUN (Urea Nitrogen) 17 mg/dL (8.4-25.7); Bilirubin, Total 0.7 mg/dL (0.2-1.2); Calc. Creatinine Clearance 0 mL/min (70-130); Calcium 9.6 mg/dL (7.8-10.44); Carbon Dioxide 23 mmol/L (23-31); Chloride 94 mmol/L (98-107); Estimated GFR-MDRD 61; Globulin 3.1 g/dL (2.4-3.5); Glucose 122 mg/dL (83-110); Magnesium 1.9 mg/dL (1.6-2.6); Potassium 4.3 mmol/L (3.5-5.1); Protein, Total 7.6 g/dL (5.8-8.1); Sodium 125 mmol/L (136-145)
--- NOTE | 2020-01-15 11:35 | RAD ---
CHEST 1 VIEW: Date: 01/15/2020 HISTORY: Dyspnea. COMPARISON: Chest radiograph dated 01/01/2020. FINDINGS: Heart size is enlarged. The pulmonary arteries are mildly dilated. Mild lung background hyperinflation. No confluent air space consolidation, pneumothorax, or effusion. Prior aortic valve replacement. Multiple midline sternotomy wires. IMPRESSION: Cardiomegaly and pulmonary hypertension. POS: HOME
[2020-01-15] MEDS ORDERED: Furosemide 40 MG TAB ONE (11:53)
[2020-01-15] MEDS ORDERED: Furosemide 40 MG/4 ML VIAL ONE (11:54)
[2020-01-15] MEDS ORDERED: methylPREDNISolone Sod Succ/PF 125 MG/2 ML VIAL IVP SCH (13:00)
[2020-01-15] MEDS ORDERED: NIFEdipine XL 30 MG TAB PO SCH (13:15)
== END 2020-01-15 16:22 | disposition home or self-care (01) ==
LOC: ERS 10:24
DX: I11.0 Hypertensive heart disease with heart failure (principal); I50.9 Heart failure, unspecified; I25.10 Atherosclerotic heart disease of native coronary artery without angina pectoris; J43.9 Emphysema, unspecified; J42 Unspecified chronic bronchitis; Z79.01 Long term (current) use of anticoagulants; Z79.899 Other long term (current) drug therapy; Z79.82 Long term (current) use of aspirin
CPT/HCPCS: 71045; 80053; 83735; 83880; 84484; 85025; 93005; 94640; 96374; 96375; J1940; J2930; J7620

== ENCOUNTER 2020-01-17 08:05 | Observation (INO) | payer MEDICARE ==
[2020-01-17 10:04] LABS: #Eosinphils 0.4 thou/uL (0.0-0.7); #Lymphocytes 1.2 thou/uL (1.20-3.40); #Monocytes 1.5 thou/uL (0.11-0.59); #Neutrophils 15.9 thou/uL (1.40-6.50); %Eosinophils 1.9 % (0.0-10.0); %Lymphocytes 6.3 % (21.0-51.0); %Monocytes 7.7 % (0.0-10.0); %Neutrophils 84.1 % (42.0-75.0); Hemoglobin 11.7 g/dL (14.0-18.0); Mean Corpuscular HGB CONC 35.8 g/dL (32.0-36.0); Mean Platelet Volume 6.7 fL (7.4-10.4); Platelet Count 188 thou/uL (130-400); RBC Distribution Width 11.3 % (11.5-14.5); Red Blood Cell (RBC) Count 3.45 mill/uL (4.70-6.10); White Blood Cell (WBC) Count 18.9 thou/uL (4.8-10.8)
[2020-01-17 10:36] LABS: ALT (SGPT) 14 U/L (8-55); AST (SGOT) 22 U/L (5-34); Albumin 3.8 g/dL (3.4-4.8); Alkaline Phosphatase 76 U/L (40-110); Anion Gap 16 mmol/L (10-20); BUN (Urea Nitrogen) 25 mg/dL (8.4-25.7); Bilirubin, Total 1.1 mg/dL (0.2-1.2); Calc. Creatinine Clearance 0 mL/min (70-130); Calcium 8.7 mg/dL (7.8-10.44); Carbon Dioxide 20 mmol/L (23-31); Chloride 96 mmol/L (98-107); Estimated GFR-MDRD 62; Globulin 2.5 g/dL (2.4-3.5); Glucose 108 mg/dL (83-110); Potassium 4.5 mmol/L (3.5-5.1); Protein, Total 6.3 g/dL (5.8-8.1); Sodium 127 mmol/L (136-145)
--- NOTE | 2020-01-17 10:52 | RAD ---
CHEST 1 VIEW: INDICATION: History of dyspnea. COMPARISON: Prior exam dated January 15, 2020. FINDINGS: Cardiomegaly, midline sternotomy changes, and aortic valvular prosthesis is stable-appearing. Mitral annular calcifications are stable-appearing. The lungs remain hyperinflated. There is interstitial prominence seen throughout both lungs which is stable, likely related to fibrosis. No airspace consolidation is evident. No definite pleural effu jimmie or pneumothorax is identified. Chronic osseous changes are stable. IMPRESSION: 1. Stable cardiomegaly without evidence of cardiac decompensation. 2. Stable hyperinflation with mild interstitial prominence. This is likely related to an underlying chronic obstructive pulmonary disease change. POS: [facility]
[2020-01-17] MEDS ORDERED: Sodium Chloride 0.9% 100 ML ONE (11:12)
[2020-01-17] MEDS ORDERED: cefTRIAXone\\ROCEPHIN 2 GM VIAL ONE (11:12)
[2020-01-17] MEDS ORDERED: cefTRIAXone\\ROCEPHIN 1 GM in Sodium Chloride 0.9% 100 ML IVPB SCH (13:00)
[2020-01-17] MEDS ORDERED: Azithromycin 500 MG VIAL ONE (13:04)
--- NOTE | 2020-01-17 13:10 | HP ---
CHIEF COMPLAINT: Shortness of breath. HISTORY OF PRESENT ILLNESS: The patient is an 84-year-old male with history of combined systolic and diastolic congestive heart failure, history of atrial fibrillation on anticoagulation, coronary artery disease with history of CABG, history of aortic valvular repair, hypertension, hyperlipidemia, and COPD, who continues to smoke. The patient presented to the hospital with complaints of shortness of breath and cough productive of greenish sputum. He was in the ER 2 days ago with milder complaints and was sent home with a course of antibiotics and corticosteroids for possible bronchitis. It is unclear why the patient was compliant with his medications. He returns today with worsening shortness of breath and was found to be wheezing in the ER. The patient is not hypoxic at this time. REVIEW OF SYSTEMS: Negative except as noted in HPI. PAST MEDICAL HISTORY: As noted above. PAST SURGICAL HISTORY: This includes aortic valve repair, coronary artery bypass surgery, currently cardioversion for AFib. SOCIAL HISTORY: The patient is a pack-a-day smoker for the last 50 years. He denied illicit drug use or alcohol use. ALLERGIES: THE PATIENT IS ALLERGIC TO PENICILLIN. PHYSICAL EXAMINATION: GENERAL: The patient is alert and oriented x3. HEENT: Head is normocephalic and atraumatic. Extraocular muscles are intact. NECK: Supple without JVD. CARDIAC: Revealed normal S1 and S2. No murmurs, rubs, or gallops. CHEST: Auscultation revealed minimal wheezing bilaterally. ABDOMEN: Soft, nontender, nondistended. EXTREMITIES: Showed no significant edema. NEUROLOGICAL: Showed normal cranial nerves 2 through 12, and normal motor and sensory examination. ASSESSMENT: 1. Chronic obstructive pulmonary disease exacerbation. 2. Chronic systolic congestive heart failure. 3. Chronic smoker. 4. Hyperlipidemia. 5. Coronary artery disease. 6. Hypertension. PLAN: 1. We will place the patient on observation. 2. Start scheduled nebulizer treatments, antibiotics, and corticosteroids. 3. Initiate low-dose Lasix. 4. Monitor the patient's response to the above measures. Job ID: [id number] [facility]
[2020-01-17] MEDS ORDERED: Azithromycin 500 MG in Sodium Chloride 0.9% 250 ML 250 ML IVPB SCH (14:00)
[2020-01-17 15:34] VITALS: BMI 24.8
[2020-01-17 16:08] LABS: Hemoglobin 13.1 g/dL (14.0-18.0); Platelet Count 207 thou/uL (130-400)
[2020-01-17] MEDS: Furosemide 20 MG/2 ML VIAL SLOW IVP SCH (16:09)
[2020-01-17] MEDS: Apixaban 5 MG TAB PO SCH (22:05)
[2020-01-17] MEDS: methylPREDNISolone Sod Succ 40 MG VIAL IVP SCH (22:05)
[2020-01-18 04:58] LABS: #Basophils 0.2 thou/uL (0.0-0.2); #Lymphocytes 0.2 thou/uL (1.20-3.40); #Monocytes 0.2 thou/uL (0.11-0.59); %Basophils 1.4 % (0.0-1.0); %Eosinophils 0.2 % (0.0-10.0); %Lymphocytes 1.7 % (21.0-51.0); %Monocytes 1.7 % (0.0-10.0); Hemoglobin 12.2 g/dL (14.0-18.0); Mean Corpuscular HGB CONC 35.4 g/dL (32.0-36.0); Mean Corpuscular Hemoglobin 33.8 pg (27.0-31.0); Mean Corpuscular Volume 95.5 fL (78.0-98.0); Platelet Count 189 thou/uL (130-400); RBC Distribution Width 11.2 % (11.5-14.5); Red Blood Cell (RBC) Count 3.61 mill/uL (4.70-6.10); White Blood Cell (WBC) Count 13.7 thou/uL (4.8-10.8)
[2020-01-18 05:23] LABS: Anion Gap 15 mmol/L (10-20); BUN (Urea Nitrogen) 24 mg/dL (8.4-25.7); Calc. Creatinine Clearance 45 mL/min (70-130); Carbon Dioxide 24 mmol/L (23-31); Chloride 94 mmol/L (98-107); Estimated GFR-MDRD 57; Glucose 155 mg/dL (83-110); Potassium 4.3 mmol/L (3.5-5.1); Sodium 129 mmol/L (136-145)
[2020-01-18] MEDS: Furosemide 20 MG/2 ML VIAL SLOW IVP SCH (06:06)
[2020-01-18] MEDS: methylPREDNISolone Sod Succ 40 MG VIAL IVP SCH (08:43)
[2020-01-18] MEDS: Apixaban 5 MG TAB PO SCH (08:44)
[2020-01-18] MEDS ORDERED: NIFEdipine XL 60 MG TAB PO SCH (09:00)
--- NOTE | 2020-01-18 11:05 | DIS ---
DATE OF ADMISSION: 01/17/2020 DATE OF DISCHARGE: 01/18/2020 DISCHARGE DISPOSITION: Home. FOLLOWUP: 1. Follow up with primary care physician, Dr. Letty Boucher in 1 week. 2. A repeat basic metabolic profile after 1 week is recommended. Primary care physician advised to follow. The patient was seen and examined on the day of discharge. Denies any new complaints. No chest pain, shortness of breath, or palpitations reported. The patient was extensively counseled on congestive heart failure. DISCHARGE MEDICATIONS: The patient was advised to continue all of his home medications. He was advised to take Lasix on an as-needed basis. He was also advised to complete the course of prednisone as prescribed by Dr. Villanueva 3 days ago in the emergency room. BRIEF HOSPITAL COURSE: The patient is an 84-year-old male with systolic and diastolic heart failure, chronic atrial fibrillation on anticoagulation, coronary artery disease status post CABG, hypertension, and hyperlipidemia, who presented to the hospital with shortness of breath. Please refer to the history and physical by Dr. Ivette Villanueva for details. The patient was admitted to the hospital with a diagnosis of congestive heart failure/COPD exacerbation. He showed good improvement with IV diuretics along with steroids and nebulizer treatment. His weight on the day of discharge is 146 pounds. He is ambulating in the hallway and is saturating 95% on room air. He was extensively counseled to quit alcohol intake. He was counseled on fluid restriction as well. A repeat basic metabolic profile next week is recommended. He appears stable for discharge. His chest x-ray was negative for infiltrate. On the day of discharge, there is no wheezing. His antibiotics will be discontinued. FINAL DIAGNOSES: 1. Acute on chronic systolic/diastolic heart failure exacerbation secondary to dietary noncompliance. 2. Chronic obstructive pulmonary disease with suspected chronic obstructive pulmonary disease exacerbation. 3. Tobacco dependence. 4. Chronic alcohol abuse. 5. Hyponatremia secondary to volume overload present on admission. 6. Chronic kidney disease, stage 2. 7. Chronic anemia, suspected due to nutritional deficiency. 8. Leukocytosis on admission probably secondary to recent steroid use. 9. Hypertension. 10. Hyperlipidemia. 11. Coronary artery disease status post coronary artery bypass graft. SIGNIFICANT LABORATORY DATA: BNP 844. Sodium on admission 127, at discharge 129. Creatinine at discharge 1.22. Hemoglobin 12.2 with hematocrit 34.5. WBC 13.5 at discharge. It was 18.9 on admission. The patient understands the above plan of care. Job ID: [id number]
[2020-01-18 11:23] VITALS: BP 169/70; TEMP 98.5
--- NOTE | 2020-01-23 14:15 | EKG ---
Test Reason : Blood Pressure : / mmHG Vent. Rate : 065 BPM Atrial Rate : 065 BPM P-R Int : 192 ms QRS Dur : 092 ms QT Int : 442 ms P-R-T Axes : 023 -54 065 degrees QTc Int : 459 ms Sinus rhythm with Premature supraventricular complexes and with occasional Premature ventricular comp lexes Left anterior fascicular block Moderate voltage criteria for LVH, may be normal variant Cannot rule out Septal infarct , age undetermined Abnormal ECG Reconfirmed by KARLA ELLSWORTH ([id number]), assignment editor SANDEE CAMP ([id number]) on 01/23/2020 2:15:22 PM Referred By: Confirmed By:KARLA Lange
== END 2020-01-18 12:10 | disposition home or self-care (01) ==
LOC: ERS 08:05 → 2SW 11:46
PROVIDERS: ADMIT Internal Medicine; ATTEND Internal Medicine
DX: I13.0 Hypertensive heart and chronic kidney disease with heart failure and stage 1 through stage 4 chronic kidney disease, or unspecified chronic kidney disease (principal); N18.2 Chronic kidney disease, stage 2 (mild); I50.43 Acute on chronic combined systolic (congestive) and diastolic (congestive) heart failure; D63.1 Anemia in chronic kidney disease; I25.10 Atherosclerotic heart disease of native coronary artery without angina pectoris; J44.9 Chronic obstructive pulmonary disease, unspecified; E78.5 Hyperlipidemia, unspecified; E87.70 Fluid overload, unspecified; E87.1 Hypo-osmolality and hyponatremia; F17.210 Nicotine dependence, cigarettes, uncomplicated; I48.91 Unspecified atrial fibrillation; D69.6 Thrombocytopenia, unspecified; Z79.01 Long term (current) use of anticoagulants; Z79.82 Long term (current) use of aspirin; Z79.899 Other long term (current) drug therapy; Z88.0 Allergy status to penicillin; Z91.11 Patient's noncompliance with dietary regimen; Z95.1 Presence of aortocoronary bypass graft
CPT/HCPCS: 71045; 80048; 80053; 82565; 83605; 83880; 84484; 85014; 85018; 85025 ×2; 85049; 87040; 93005; 94640 ×2; 96365; 96367; 96375; 96376; 97116; 97139 ×4; 99285; G0378 ×3; 36415; J0456; J0696; J1940; J2920; J3490; J7620

== ENCOUNTER 2020-02-03 08:24 | Observation (INO) | payer MEDICARE ==
[2020-02-03 08:53] LABS: #Basophils 0.1 thou/uL (0.0-0.2); #Eosinphils 1.5 thou/uL (0.0-0.7); #Lymphocytes 1.8 thou/uL (1.20-3.40); #Monocytes 0.9 thou/uL (0.11-0.59); #Neutrophils 6.4 thou/uL (1.40-6.50); %Basophils 0.6 % (0.0-1.0); %Eosinophils 13.9 % (0.0-10.0); %Lymphocytes 16.5 % (21.0-51.0); %Monocytes 8.2 % (0.0-10.0); %Neutrophils 60.7 % (42.0-75.0); Hemoglobin 14.5 g/dL (14.0-18.0); Mean Corpuscular HGB CONC 35.2 g/dL (32.0-36.0); Mean Corpuscular Hemoglobin 33.8 pg (27.0-31.0); Mean Corpuscular Volume 96.1 fL (78.0-98.0); Mean Platelet Volume 6.5 fL (7.4-10.4); Platelet Count 247 thou/uL (130-400); RBC Distribution Width 11.5 % (11.5-14.5); Red Blood Cell (RBC) Count 4.27 mill/uL (4.70-6.10); White Blood Cell (WBC) Count 10.6 thou/uL (4.8-10.8)
--- NOTE | 2020-02-03 09:10 | RAD ---
PORTABLE CHEST 1 VIEW: Date: 02/03/2020 Time: 0859 hours HISTORY: Chest pain. COMPARISON: 01/17/2020. FINDINGS: Changes of median sternotomy again seen. The heart size is mildly enlarged. The aorta is tortuous. Th e lungs are well expanded without lobar consolidation, pneumothoraces, shira pulmonary edema, or pleu ral effusions. IMPRESSION: No acute process. POS: [facility]
[2020-02-03 09:16] LABS: ALT (SGPT) 18 U/L (8-55); AST (SGOT) 20 U/L (5-34); Alkaline Phosphatase 101 U/L (40-110); Anion Gap 14 mmol/L (10-20); BUN (Urea Nitrogen) 17 mg/dL (8.4-25.7); Bilirubin, Total 0.6 mg/dL (0.2-1.2); Calc. Creatinine Clearance 0 mL/min (70-130); Calcium 9.7 mg/dL (7.8-10.44); Carbon Dioxide 20 mmol/L (23-31); Chloride 101 mmol/L (98-107); Estimated GFR-MDRD 75; Globulin 3.3 g/dL (2.4-3.5); Glucose 113 mg/dL (83-110); Potassium 4.1 mmol/L (3.5-5.1); Protein, Total 7.3 g/dL (5.8-8.1); Sodium 131 mmol/L (136-145)
[2020-02-03 09:38] LABS: CKMB 1.6 ng/mL (0-6.6)
[2020-02-03 13:33] LABS: Troponin I 0.015 ng/mL (< 0.028)
[2020-02-03 14:44] VITALS: BMI 23.6
[2020-02-03] MEDS ORDERED: Guaifenesin DM 100-10/5 ML UDCUP PO PRN (15:06)
[2020-02-03] MEDS ORDERED: Nitroglycerin 0.4 MG TAB (25 Tab Bottle) PO PRN (15:06)
[2020-02-03] MEDS ORDERED: Senokot S 8.6-50 MG TAB PO PRN (15:06)
[2020-02-03] MEDS ORDERED: Acetaminophen 325 MG TAB PO PRN (15:06)
[2020-02-03] MEDS ORDERED: Ondansetron PF 4 MG/2 ML Vial IVP PRN (15:06)
[2020-02-03] MEDS ORDERED: Bisacodyl 10 MG SUPP PR PRN (15:06)
[2020-02-03] MEDS ORDERED: Furosemide 40 MG TAB PO PRN (15:06)
[2020-02-03] MEDS ORDERED: NIFEdipine XL 60 MG TAB PO SCH (16:15)
[2020-02-03 16:29] LABS: Troponin I 0.028 ng/mL (< 0.028)
--- NOTE | 2020-02-03 16:51 | HP ---
REASON FOR ADMISSION: Palpitations, chest pain. HISTORY OF PRESENTING ILLNESS: The patient gives history of waking up around 2: 30 in the morning with palpitations. This lasted for nearly 15 minutes. He developed chest discomfort at the end of it. This happened while he was trying to use the restroom. The patient also mentions that he has had similar episodes yesterday and day before, which were of 5 minutes or less duration. This morning's episode kind of put him off and got concerned. He finally called EMS and was brought here. He has not had any further episodes of palpitations after this morning. No complaints of chest pain at present. No complaints of fever, cough, or expectoration. No exposure to coronavirus. No travel history. The patient in fact says he spoke to Dr. Landers on Monday via tele consultation. The plan was to have a stress test at some point. The patient has had CABG done for single-vessel disease to distal RCA on 07/14/2016 and has a bioprosthetic aortic valve as well. No complaints of fever. PAST MEDICAL AND SURGICAL HISTORY: History of CABG for single-vessel disease with saphenous vein graft placed to distal RCA on 07/14/2016. He has had bioprosthetic 23 Magna aortic valve placed on the same occasion. Echo done in August 2019 showed ejection fraction of 60% with diastolic dysfunction. Hypertension, history of paroxysmal atrial fibrillation in the past with electrical cardioversion done , emphysema, dyslipidemia. CURRENT MEDICATIONS: The patient takes: 1. Eliquis 5 mg twice daily. 2. Vytorin 10/40 mg once daily. 3. Aspirin 81 mg p.o. daily. 4. Procardia XL 30 mg p.o. daily. 5. Albuterol inhaler q.6 hourly p.r.n. 6. Spironolactone 25 mg daily. ALLERGIES: TO PENICILLIN. PERSONAL HISTORY: Smokes 3 to 4 cigarettes a day. Drinks 1 to 2 beers daily. Does not abuse drugs. He lives with his . FAMILY HISTORY: Mother at the age of 87 from likely natural causes. Father at the age of 74. He had history of coronary artery disease. CODE STATUS: Full power of assistant attorney general is his . REVIEW OF SYSTEMS: CONSTITUTIONAL: Negative for weight loss or gain, ability to conduct usual activities. SKIN: Negative for rash, itching. EYES: Negative for double vision, pain. ENT/MOUTH: Negative for nose bleeding, neck stiffness, pain, tenderness. CARDIOVASCULAR: Negative for palpitations, dyspnea on exertion, orthopnea. RESPIRATORY: Negative for shortness of breath, wheezing, cough, hemoptysis, fever or night sweats. GASTROINTESTINAL: Negative for poor appetite, abdominal pain, heartburn, nausea , vomiting, constipation, or diarrhea. GENITOURINARY: Negative for urgency, frequency, dysuria, nocturia. MUSCULOSKELETAL: Negative for pain, swelling. NEUROLOGIC/PSYCHIATRIC: Negative for anxiety, depression. ALLERGY/IMMUNOLOGIC: Negative for skin rash, bleeding tendency. PHYSICAL EXAMINATION: GENERAL: The patient is an 84-year-old male, who is currently not in any acute distress. VITAL SIGNS: Blood pressure 196/74, pulse 70 per minute, respiratory rate 18 per minute, temperature 98.3 degrees Fahrenheit, saturating 99% on room air. NECK: Supple. No elevated JVD. HEENT: Eyes; extraocular muscles intact. Pupils are reacting to light. Oral cavity, mucous membranes are moist. No exudates or congestion. CARDIOVASCULAR SYSTEM: S1 and S2 heard. Regular rhythm. RESPIRATORY SYSTEM: Air entry 1+ bilateral. Scattered rhonchi plus no rales or wheezes. ABDOMEN: Soft. Bowel sounds heard. No tenderness, rigidity, or guarding. EXTREMITIES: No peripheral edema or calf tenderness. VASCULAR SYSTEM: Peripheral pulses 1+ bilateral. No ischemic ulcerations or gangrene. CENTRAL NERVOUS SYSTEM: No gross focal deficits noted. The patient is alert, awake, oriented well. PSYCHIATRIC SYSTEM: The patient's mood is euthymic. No hallucinations or delusions. LABORATORY DATA: White count of 10, H and H of 14 and 41, platelet count is 247 , MCV is 96 with 60% neutrophils, 16% lymphocytes. Sodium is 131, serum bicarb 20 , BUN 17, creatinine 0.9, serum glucose 113. Troponin I is 0.03 first set, second set is 0.01. CK-MB 1.6. Liver enzymes within normal limits. Albumin is 4.0. Chest x-ray done shows no acute cardiopulmonary abnormalities. EKG done shows sinus rhythm at 66 beats per minute. There is frequent PVC seen and signs of LVH strain pattern seen. CLINICAL IMPRESSION AND PLAN: The patient will be under observation on telemetry for episodes of palpitation with likely paroxysmal atrial fibrillation. He also developed chest discomfort associated with palpitations. We will consult Dr. Landers for Cardiology. He is currently in sinus rhythm. We will continue his aspirin, Eliquis, Lipitor, Procardia XL as before. We will obtain one more set of troponin. We will continue to closely monitor him on telemetry. The patient likely might need event monitor upon discharge in view of recurrent episodes of likely paroxysmal atrial fibrillation in view of prior presentations post coronary artery bypass graft. He has had history of left atrial ligation done and prior transesophageal echocardiogram. Job ID: [id number] [facility]
[2020-02-03] MEDS: Carvedilol 3.125 MG TAB PO SCH (17:06)
--- NOTE | 2020-02-03 19:53 | CON ---
DATE OF CONSULTATION: 02/03/2020 PRIMARY SOLE STAP[employer]ER WELT: Ludin Landers MD REASON FOR OBSERVATION: Currently is palpitations and chest pain. HISTORY OF PRESENT ILLNESS: Mr. Inman is a very pleasant gentleman with history of aortic valve replacement and bypass x1. Recently, he has been having increasing palpitations, has some palpitations yesterday, lasted about 15 minutes and again early this morning, he said went about "as fast as he could possibly go," that is associated with some burning in his chest and another episode, finally he came to the emergency room, where he has been brought in for observation. MEDICATIONS: At home, included: 1. Nifedipine. 2. Low-dose carvedilol. 3. Furosemide. 4. The patient was also on Eliquis. 5. Spironolactone. 6. Tenormin. The patient has been placed on carvedilol here. ALLERGIES: TO PENICILLIN. REVIEW OF SYSTEMS: Please see the documentation in the chart. PHYSICAL EXAMINATION: GENERAL: This is a pleasant elderly gentleman, resting comfortably, in no distress. VITAL SIGNS: Blood pressure 182/86 and pulse 70. LUNGS: Clear. CARDIAC: Normal S1 and S2. There is a harsh systolic murmur of aortic valve replacement in the left mid sternal border. ABDOMEN: Soft and nontender. EXTREMITIES: No edema. LABORATORY DATA: Troponin is indeterminate at 0.033. EKG showed no acute changes. ASSESSMENT: 1. Palpitations with history of atrial arrhythmias. 2. One episode of angina with the palpitations. PLAN: Will be scheduled for stress test. Dr. Landers will be seeing the patient tomorrow morning. Job ID: [id number]
[2020-02-03] MEDS: Famotidine 20 MG TAB PO SCH (20:04)
[2020-02-03] MEDS: Apixaban 5 MG TAB PO SCH (20:04)
[2020-02-03] MEDS ORDERED: Ezetimibe 10 MG TAB PO SCH (21:00)
[2020-02-03] MEDS ORDERED: Atorvastatin Calcium 20 MG TAB PO SCH (21:00)
[2020-02-03 21:27] LABS: Hemoglobin 13.4 g/dL (14.0-18.0); Platelet Count 236 thou/uL (130-400)
[2020-02-04 05:34] LABS: Anion Gap 12 mmol/L (10-20); BUN (Urea Nitrogen) 16 mg/dL (8.4-25.7); Calc. Creatinine Clearance 53 mL/min (70-130); Calcium 9.3 mg/dL (7.8-10.44); Carbon Dioxide 24 mmol/L (23-31); Cardiac Risk 3.5 (Less than 4.5); Chloride 100 mmol/L (98-107); Cholesterol 197 mg/dl (< 200 Desired); Estimated GFR-MDRD 71; Glucose 96 mg/dL (83-110); HDL Cholesterol 56 mg/dL (>60 Neg Risk); LDL Cholesterol, Calculated 127 mg/dL; Potassium 4.4 mmol/L (3.5-5.1); Sodium 132 mmol/L (136-145); Triglycerides 72 mg/dL (Less than 150)
[2020-02-04 06:07] LABS: Hemoglobin 13.4 g/dL (14.0-18.0); Mean Corpuscular HGB CONC 35.2 g/dL (32.0-36.0); Mean Corpuscular Hemoglobin 33.6 pg (27.0-31.0); Mean Corpuscular Volume 95.5 fL (78.0-98.0); RBC Distribution Width 11.2 % (11.5-14.5); Red Blood Cell (RBC) Count 3.99 mill/uL (4.70-6.10)
[2020-02-04 06:23] LABS: Band 1 % (5-11); Eosinophils 27 % (0-10); Lymphocytes 23 % (21-51); MDiff Complete? YES; Mean Platelet Volume 6.9 fL (7.4-10.4); Monocytes 9 % (0-10); Neutrophil 40 % (42-75); Platelet Count 249 thou/uL (130-400); White Blood Cell (WBC) Count 9.1 thou/uL (4.8-10.8)
[2020-02-04] MEDS: Famotidine 20 MG TAB PO SCH (07:44)
[2020-02-04] MEDS: Apixaban 5 MG TAB PO SCH (07:45)
[2020-02-04] MEDS ORDERED: NIFEdipine XL 60 MG TAB PO SCH (09:00)
[2020-02-04] MEDS ORDERED: Furosemide 20 MG TAB PO SCH (09:00)
[2020-02-04] MEDS ORDERED: Aspirin 81 mg Enteric Coated Tablet PO SCH (09:00)
[2020-02-04] MEDS ORDERED: Potassium Chloride 10 MEQ TAB PO SCH (09:00)
[2020-02-04] MEDS ORDERED: Regadenoson 0.4 MG/5 ML SYRINGE ONE (11:43)
--- NOTE | 2020-02-04 12:20 | NM ---
NUCLEAR MEDICINE CARDIAC PERFUSION EXAMINATION WITH EJECTION FRACTION: HISTORY: 84-year-old male with chest pain. TECHNIQUE: A single day nuclear medicine cardiac perfusion examination was performed. Rest images were obtained using 10 mCi of technetium-99m sestamibi. Stress images were obtained using 32.2 mCi of technetium-99 m sestamibi and Lexiscan. FINDINGS: Tomographic images show no fixed or reversible perfusion defects. Gated images show normal wall motio n with an ejection fraction of 62%. EDV: 99 mL LHR: 0.3 TID: 1.0 IMPRESSION: No evidence of ischemia. POS: [facility]
[2020-02-04 12:31] VITALS: BP 152/71; TEMP 97.7
[2020-02-04] MEDS: Carvedilol 3.125 MG TAB PO SCH (12:41)
[2020-02-04] MEDS ORDERED: Carvedilol 3.125 MG TAB PO SCH (17:00)
--- NOTE | 2020-02-05 12:18 | DIS ---
DATE OF ADMISSION: 02/03/2020 DATE OF DISCHARGE: 02/04/2020 DISCHARGE DISPOSITION: To home. PRIMARY DISCHARGE DIAGNOSIS: Palpitations with chest pain. SECONDARY DISCHARGE DIAGNOSES: History of coronary artery disease with prior coronary artery bypass grafting, bioprosthetic aortic valve, history of paroxysmal atrial fibrillation, hypertension, history of diastolic dysfunction, and dyslipidemia. PROCEDURES DONE DURING HOSPITALIZATION: Chest x-ray done showed no acute cardiopulmonary process. Nuclear stress test done showed no evidence of ischemia. Ejection fraction was 62%. Wall motion was normal. No reversible perfusion defects or fixed defects were seen. H and H 13 and 38 and platelet count 249 with 40% neutrophils, MCV is 95, white count of 9. BUN 16 and creatinine 1.0. Troponin I initial set was 0.03, subsequent two sets were negative. Total cholesterol 197, triglycerides 72, LDL 127, HDL 56, BUN 17, and creatinine 0.9. INPATIENT CONSULT: Dr. Garcia for Cardiology. DISCHARGE MEDICATIONS: 1. Spironolactone with hydrochlorothiazide 25/25 mg one tablet daily. 2. Eliquis 5 mg twice daily. 3. Aspirin 81 mg p.o. daily. 4. Coreg 6.25 mg twice daily. 5. DuoNeb q.i.d. p.r.n. 6. Procardia XL 60 mg p.o. daily. ALLERGIES: ALLERGIC TO PENICILLIN. DISCHARGE PLAN: The patient to follow up with Dr. Letty Boucher in 1 week. BRIEF COURSE DURING HOSPITALIZATION: The patient initially came to the ER with complaints of palpitations for nearly 15 minutes or so. These were recurrent episodes. The last episode was associated with chest discomfort. He was placed under observation on telemetry. The patient also has had history of paroxysmal atrial fibrillation and was closely monitored on telemetry, although he remained in sinus rhythm. He was evaluated by Dr. Garcia. He has had a nuclear stress test done, which did not reveal any fixed or reversible defects. The patient remained palpitations and chest pain free during his stay here. He is eating and ambulating well. He is cleared for discharge by Dr. Garcia. He has remained hemodynamically stable and needs to follow up with his primary care physician in 1 week. Please note, I have seen and examined the patient on the day of discharge. Job ID: [id number]
== END 2020-02-04 16:16 | disposition home or self-care (01) ==
LOC: ERS 08:24 → 2SW 14:12
PROVIDERS: ADMIT Internal Medicine; ATTEND Internal Medicine
DX: R07.89 Other chest pain (principal); I20.9 Angina pectoris, unspecified; I10 Essential (primary) hypertension; E78.5 Hyperlipidemia, unspecified; I48.0 Paroxysmal atrial fibrillation; F17.210 Nicotine dependence, cigarettes, uncomplicated; Z79.01 Long term (current) use of anticoagulants; Z79.82 Long term (current) use of aspirin; Z79.899 Other long term (current) drug therapy; Z95.1 Presence of aortocoronary bypass graft; Z95.2 Presence of prosthetic heart valve; Z88.0 Allergy status to penicillin
CPT/HCPCS: 71045; 78452; 80048; 80053; 80061; 82553; 82565; 84484 ×2; 85014; 85018; 85025 ×2; 85049; 93005; 93017; 94760; 99285; A9500; G0378 ×3; 36415; J2785

== ENCOUNTER 2020-06-12 06:06 | Day surgery (SDC) | payer MEDICARE ==
[2020-06-11 10:50] VITALS: BMI 24.7
[2020-06-12] MEDS ORDERED: Fentanyl 100 MCG/2 ML VIAL ONE (07:39)
--- NOTE | 2020-06-12 09:27 | OP ---
DATE OF PROCEDURE: 06/12/2020 PROCEDURES PERFORMED: Esophagogastroduodenoscopy with biopsy and esophageal balloon dilation. INDICATION FOR PROCEDURE: GERD, dysphagia. DESCRIPTION OF PROCEDURE: After the risks and benefits of the procedure were explained to the patient including risks of bleeding, infection, perforation, reactions to anesthesia, aspiration and/or pain, informed consent was obtained. The patient was then taken to the endoscopy suite, where he was maneuvered into the left lateral decubitus position, followed by introduction of deep sedation via propofol and anesthesia support. Once adequate sedation was achieved, the standard gastroscope was introduced into the mouth with intubation of the esophagus, stomach, and the proximal small intestines with the findings listed below. The patient tolerated the procedure well with no immediate perioperative complications. On conclusion of the procedure, all equipment was removed from the patient and he was transferred to Day Stay in satisfactory condition. FINDINGS: Esophagus: Normal-appearing mucosa was seen in the proximal, mid, and distal esophagus. There was no evidence of erosions, ulcerations, mass lesions, strictures, or active/recent bleeding. Given his history of dysphagia, biopsies were taken from both the distal and proximal esophagus for evaluation of the eosinophilic esophagitis. During the course of the procedure, despite insufflation with air from the scope itself, relaxation of the lower esophageal sphincter was not noticeably observed, so the gastroesophageal junction was empirically dilated with a TTS CRE esophageal balloon starting at 18 mm and reaching a maximum diameter 20 mm. Post dilation, there was no change in the mucosa. Stomach: Normal-appearing mucosa was seen in the gastric cardia, fundus, body, greater curvature, antrum, and incisura. There was no evidence of erosions, ulcerations, mass lesions, or active/recent bleeding. Duodenum: Normal-appearing mucosa was seen in both the duodenal bulb and second portion of the duodenum. There was no evidence of erosions, ulcerations, mass lesions, or active/recent bleeding. IMPRESSION: 1. Incomplete relaxation of the lower esophageal sphincter seen during the examination today, which is not diagnostic, but suggestive of either hypertensive lower esophageal sphincter or progressing achalasia, now status post dilation to 20 mm balloon. 2. Otherwise normal upper endoscopy. RECOMMENDATIONS: 1. Would follow up on the biopsy results with repeat upper endoscopy depending on pathology results. 2. Would recommend restarting omeprazole 40 mg daily in light of possible nonerosive reflux disease. 3. Would attempt to avoid trigger foods and maintain strict anti-reflux precautions. 4. Would hold Eliquis for approximately 48 to 72 hours after this procedure given the increased risk of bleeding from the interventions today, then restart. 5. Follow up in the GI clinic in 3 weeks for followup evaluation on his dysphagia. Job ID: [id number]
[2020-06-12] MEDS ORDERED: PROPOFOL 200 MG/20 ML VIAL ONE (10:08)
[2020-06-12] MEDS ORDERED: Lidocaine 1% PF 5 ML VIAL ONE (10:08)
== END 2020-06-12 09:18 | disposition home or self-care (01) ==
LOC: SDC 06:06
PROVIDERS: ATTEND Internal Medicine
PROC: 0DB38ZX Excision of Lower Esophagus, Via Natural or Artificial Opening Endoscopic, Diagnostic (ICD-10-PCS; principal; 2020-06-12)
PROC: 0DB18ZX Excision of Upper Esophagus, Via Natural or Artificial Opening Endoscopic, Diagnostic (ICD-10-PCS; 2020-06-12)
PROC: 0D738ZZ Dilation of Lower Esophagus, Via Natural or Artificial Opening Endoscopic (ICD-10-PCS; 2020-06-12)
DX: K22.8 Other specified diseases of esophagus (principal); K21.0 Gastro-esophageal reflux disease with esophagitis; R13.10 Dysphagia, unspecified; K59.09 Other constipation; R53.83 Other fatigue; R53.81 Other malaise; Z79.01 Long term (current) use of anticoagulants; Z79.82 Long term (current) use of aspirin; Z79.899 Other long term (current) drug therapy; Z88.0 Allergy status to penicillin; Z95.1 Presence of aortocoronary bypass graft; Z95.2 Presence of prosthetic heart valve
CPT/HCPCS: 88305; 88312; 88313; J2704; J3010

== ENCOUNTER 2020-12-13 19:40 | Inpatient (IN) | payer MEDICARE ==
[2020-12-13 21:28] LABS: CKMB 1.7 ng/mL (0-6.6)
[2020-12-13 23:46] LABS: Troponin I 0.102 ng/mL (< 0.028)
[2020-12-14] MEDS ORDERED: hydrALAZINE 20 MG/ML VIAL SLOW IVP PRN (00:43)
[2020-12-14] MEDS ORDERED: Ondansetron PF 4 MG/2 ML Vial IVP PRN (00:44)
[2020-12-14] MEDS ORDERED: HYDROcodone/Acetaminophen 7.5/325 mg Tablet PO PRN (00:44)
[2020-12-14] MEDS ORDERED: Acetaminophen 325 MG TAB PO PRN (00:44)
--- NOTE | 2020-12-14 00:58 | PDOC.HHP ---
Hospitalist HPI Chest pain History of Present Illness: 85-year-old male with past medical history of hypertension, CAD status post CABG 5 years ago with subsequent valve replacement admitted to the 2 weeks ago for chest pain, underwent stress test which was reportedly negative. Patient was scheduled to have echo done to assess valve dysfunction next week presented because of sudden onset burning chest pain more around the epigastric area pain has woken patient from up this morning. Patient admits to some palpitation as well as shortness of breath with minimal exertion. He does state his shortness of breath has been worsening since the last 2 weeks. He states he is adherent with his diuretic. He denies any chest pain or dizziness. He is still having the burning substernal symptoms now. On presentation her initial EKG showed no ST segment changes. His troponin was mildly elevated at 0.09 with repeat of 0.1. He has been admitted for chest pain rule out ACS. Allergies/Adverse Reactions: Allergy/AdvReac Type Severity Reaction Status Date / Time Penicillins Allergy Unknown Verified 06/11/20 10:19 Home Medications: Medication Instructions Recorded Confirmed Type Aspirin [Ecotrin Low Strength] 81 mg PO DAILY tab 09/11/19 06/11/20 Rx Ipratropium/Albuterol Sulfate 3 ml NEB QID PRN #60 neb 01/15/20 06/11/20 Rx [DuoNeb] Spironolact/Hydrochlorothiazid 1 tab PO DAILY 01/17/20 06/11/20 History [Spironolactone-Hctz 25-25 Tab] Apixaban [Eliquis] 5 mg PO QAM 06/11/20 06/11/20 History Atenolol [Tenormin] 100 mg PO QAM 06/11/20 06/11/20 History Ezetimibe/Simvastatin 1 each PO QPM 06/11/20 06/11/20 History [Ezetimibe-Simvastatin 10-40 mg] hydrALAZINE HCl [Hydralazine HCl] 25 mg PO TID 06/11/20 06/11/20 History Past History: PMHx: Hypertension, CAD, chronic tobacco use PSHx: Status post CABG FHx: History of CAD Social: 1 pack/day tobacco use, no history of alcohol or illicit drug use Hospitalist HPI ROS All other systems reviewed; all pertinent +/- noted in HPI/Subj Hospitalist Exam General Appearance: NAD, awake alert Eye: PERRL, anicteric sclera ENT: normocephalic atraumatic, no oropharyngeal lesions Neck: supple, symmetric, no JVD Heart: RRR, no murmur Respiratory: CTAB, no wheezes Gastrointestinal: soft, normal bowel sounds, no palpable masses, tender to palpation (Epigastric area) Extremities: no cyanosis, no clubbing Skin: normal turgor, no lesions Neurological: cranial nerve grossly intact, normal sensation to touch, no focal deficits Musculoskeletal: normal tone, normal strength Psychiatric: normal affect, normal behavior, A&O x 3 Hospitalist Results Lab results: Laboratory Last Values CK-MB (CK-2) 1.7 ng/mL (0-6.6) 12/13/20 20:34 Troponin I 0.102 ng/mL (< 0.028) H 12/13/20 23:13 Additional comment: EKG from outside facility reviewed, normal sinus rhythm, no ST segment changes Hospitalist H&P A/P (1) Atrial fibrillation Code(s): I48.91 - UNSPECIFIED ATRIAL FIBRILLATION Status: Acute (2) Chest pain Code(s): R07.9 - CHEST PAIN, UNSPECIFIED Status: Acute (3) Hypertension Code(s): I10 - ESSENTIAL (PRIMARY) HYPERTENSION Status: Acute (4) COPD (chronic obstructive pulmonary disease) Status: Chronic Plan: Chest painatypical, may be due to GERD Mild troponin elevation may be due to post CABG Continue serial sets of cardiac enzymes Mild elevated BNP, with dose Lasix now We will start PPI twice daily empirically Follow cardiology consult Obtain echocardiogram to assess valvular dysfunction Hypertensioncontrolled DVT prophylaxissubcutaneous Lovenox Advance directivediscussed with patient, he wants full code
[2020-12-14] MEDS ORDERED: Furosemide 40 MG/4 ML VIAL SLOW IVP SCH ×2 (01:00→09:00)
[2020-12-14] MEDS ORDERED: Pantoprazole 40 MG GRANULES PACKET PO SCH (01:15)
[2020-12-14] MEDS ORDERED: Furosemide 40 MG TAB ONE (01:23)
[2020-12-14] MEDS ORDERED: Furosemide 40 MG/4 ML VIAL ONE ×2 (01:24→09:55)
[2020-12-14 03:06] LABS: Band 1 % (5-11); Eosinophils 2 % (0-10); Hemoglobin 13.1 g/dL (14.0-18.0); Lymphocytes 40 % (21-51); MDiff Complete? YES; Mean Corpuscular HGB CONC 34.2 g/dL (32.0-36.0); Mean Corpuscular Hemoglobin 32.5 pg (27.0-31.0); Mean Corpuscular Volume 95.1 fL (78.0-98.0); Mean Platelet Volume 7.8 fL (7.4-10.4); Monocytes 7 % (0-10); Neutrophil 49 % (42-75); Platelet Count 182 thou/uL (130-400); Platelet Morphology Comment Appears Adequate; RBC Distribution Width 11.5 % (11.5-14.5); Reactive Lymphocytes 1 % (0-10); Red Blood Cell (RBC) Count 4.03 mill/uL (4.70-6.10); White Blood Cell (WBC) Count 8.6 thou/uL (4.8-10.8)
[2020-12-14 03:13] LABS: ALT (SGPT) 13 U/L (8-55); AST (SGOT) 20 U/L (5-34); Albumin 3.4 g/dL (3.4-4.8); Alkaline Phosphatase 83 U/L (40-110); Anion Gap 13 mmol/L (10-20); BUN (Urea Nitrogen) 21 mg/dL (8.4-25.7); Bilirubin, Total 0.4 mg/dL (0.2-1.2); Calc. Creatinine Clearance 0 mL/min (70-130); Calcium 8.8 mg/dL (7.8-10.44); Carbon Dioxide 19 mmol/L (23-31); Chloride 108 mmol/L (98-107); Globulin 2.9 g/dL (2.4-3.5); Glucose 93 mg/dL (83-110); Protein, Total 6.3 g/dL (5.8-8.1); Sodium 136 mmol/L (136-145)
[2020-12-14 03:17] LABS: Troponin I 0.078 ng/mL (< 0.028)
[2020-12-14 05:08] LABS: SARS-CoV-2 PCR by NAA Not Detected (NotDetected)
[2020-12-14] MEDS ORDERED: Atenolol 50 MG TAB PO SCH (09:00)
[2020-12-14] MEDS: Hydrochlorothiazide 25 MG TAB PO SCH (09:31)
[2020-12-14] MEDS: Apixaban 5 MG TAB PO SCH (09:31)
[2020-12-14] MEDS: Pantoprazole 40 MG GRANULES PACKET PO SCH ×2 (09:31→20:42)
[2020-12-14] MEDS: hydrALAZINE 25 MG TAB PO SCH ×3 (09:31→20:42)
[2020-12-14] MEDS: Spironolactone 25 MG TAB PO SCH (09:31)
[2020-12-14] MEDS ORDERED: Famotidine 20 MG TAB ONE ×2 (09:55→20:44)
[2020-12-14] MEDS ORDERED: Aspirin 81 mg Enteric Coated Tablet ONE (09:55)
[2020-12-14] MEDS: Aspirin 81 mg Enteric Coated Tablet PO SCH (09:55)
[2020-12-14] MEDS: Famotidine 20 MG TAB PO SCH ×2 (09:55→20:44)
--- NOTE | 2020-12-14 11:06 | CON ---
DATE OF CONSULTATION: HISTORY OF PRESENT ILLNESS: The patient is an 85-year-old gentleman, who presents for evaluation of palpitations and chest discomfort. The patient has a previous history of coronary artery disease and aortic stenosis. In 2015, the patient underwent a cardiac catheterization. He was found to have a 50% LAD lesion and 99% lesion in the right coronary artery. Subsequently, he underwent coronary artery bypass surgery x1 with a bypass to the right coronary artery and aortic valve replacement. The patient has previously also undergone a left atrial appendage ligation. He was previously treated with Multaq for atrial fibrillation. The patient was admitted in August 2019 with a hypertensive crisis. The patient has a long history of ethanol and tobacco abuse. The patient was readmitted in January of 2000 with palpitations and chest pain. He underwent a Cardiolite stress test revealed no evidence of ischemia. The patient has noticed that whenever his heart rate is elevated. He had developed left-sided chest discomfort. He reported recently that he has had increasing palpitations. PAST MEDICAL HISTORY: 1. Coronary artery disease. 2. Aortic valve replacement. 3. Hypertension. 4. Paroxysmal atrial fibrillation. 5. Tobacco abuse. 6. History of ethanol abuse. PAST SURGICAL HISTORY: Coronary artery bypass graft surgery. SOCIAL HISTORY: Long history of tobacco abuse. The patient quit consuming alcohol 2 months ago. FAMILY HISTORY: Positive family history of coronary artery disease. ALLERGIES: PENICILLIN. REVIEW OF SYSTEMS: Ten-point system otherwise unremarkable. No history of easy bruising or bleeding. PHYSICAL EXAMINATION: GENERAL: Well-developed gentleman, in no acute distress. VITAL SIGNS: With a blood pressure of 138/90 and heart rate is 100 and irregular. NECK: Showed no jugular venous distention. LUNGS: Clear to auscultation. HEART: Irregular rate and rhythm with a normal S1 and S2 with a 2/6 systolic murmur. ABDOMEN: Nondistended. EXTREMITIES: Show no edema. VASCULAR: Radial pulse 2+. LABORATORY DATA: Sodium 136, potassium 4.0, chloride 108, bicarb 19, BUN 21, and creatinine 1.11. Troponin was 0.078. White blood count 8.6, hemoglobin 13.1, hematocrit 38.3, and platelets 182. EKG atrial fibrillation with a nonspecific ST-T wave abnormality. IMPRESSION AND PLAN: 1. Atypical chest pain. 2. Paroxysmal atrial fibrillation. 3. History of coronary artery bypass surgery x1. 4. Status post aortic valve replacement. 5. Tobacco abuse. 6. History of ethanol abuse. 7. Left atrial appendage ligation. This gentleman presents with atypical chest pain. He has undergone several stress tests and there were no evidence of ischemia. The patient's symptoms seem to be most present when his heart rate is elevated. We would recommend he undergo a repeat electrical cardioversion. We will follow this patient with you through his hospitalization. Job ID: [id number] MTDD
--- NOTE | 2020-12-14 12:37 | PDOC.HOSPP ---
- Subjective Encounter Date: 12/14/20 Encounter Time: 12:30 Subjective: Patient reports no more chest pain. He is having some shortness of breath when he gets up and walks around the bed but none while he is laying down. No other complaints. - Objective Vital Signs & Weight: Vital Signs (12 hours) Pulse 12/14/20 09:31 92 Result Diagrams: 12/14/20 02:27 12/14/20 02:27 Hospitalist ROS - Review of Systems Constitutional: denies: fever, chills Respiratory: reports: SOB with excertion. denies: cough, shortness of breath Cardiovascular: denies: chest pain, palpitations Gastrointestinal: denies: nausea, vomiting, abdominal pain - Medication Medications: Active Medications Generic Name Dose Route Start Last Admin Trade Name Freq PRN Reason Stop Dose Admin Apixaban 5 mg 12/14/20 09:00 12/14/20 09:31 Apixaban 5 Mg Tab PO 5 mg QAM HERNAN Administration Aspirin 81 mg 12/14/20 09:00 12/14/20 09:55 Aspirin 81 Mg Enteric Coated Tablet PO 81 mg DAILY HERNAN Administration Famotidine 20 mg 12/14/20 09:00 12/14/20 09:55 Famotidine 20 Mg Tab PO 20 mg BID HERNAN Administration Hydralazine HCl 25 mg 12/14/20 09:00 12/14/20 09:31 Hydralazine 25 Mg Tab PO 25 mg TID HERNAN Administration Hydrochlorothiazide 25 mg 12/14/20 09:00 12/14/20 09:31 Hydrochlorothiazide 25 Mg Tab PO 25 mg DAILY HERNAN Administration Pantoprazole Sodium 40 mg 12/14/20 09:00 12/14/20 09:31 Pantoprazole 40 Mg Granules Packet PO 40 mg BID HERNAN Administration Spironolactone 25 mg 12/14/20 09:00 12/14/20 09:31 Spironolactone 25 Mg Tab PO 25 mg DAILY HERNAN Administration Hospitalist Exam Vitals: Vital Signs (12 hours) Pulse 12/14/20 09:31 92 General Appearance: NAD, awake alert ENT: moist mucosa Heart: no murmur, no gallops, no rubs, irregular Respiratory: CTAB, no wheezes, no rales, no ronchi Gastrointestinal: soft, non-tender, non-distended, normal bowel sounds Extremities: no edema Psychiatric: normal affect, normal behavior, A&O x 3 Hosp A/P - Plan Chest painatypical May be due to GERD, but seems to happen when he is having A. fib runs Multiple recent negative stress test Possibly secondary to patient's A. fib Paroxysmal atrial fibrillation Dr. Landers has evaluated the patient, plan for SAHKIR and cardioversion either later today or tomorrow morning Mild troponin elevation may be due to post CABG Continue serial sets of cardiac enzymes Mild elevated BNP Given 1 dose Lasix Echocardiogram pending Possible gastroesophageal reflux disease We will start PPI twice daily empirically Hypertensioncontrolled DVT prophylaxissubcutaneous Lovenox
[2020-12-14] MEDS: Dronedarone HCl 400 MG TAB PO SCH (16:34)
--- NOTE | 2020-12-14 19:14 | CON ---
DATE OF CONSULTATION: REQUESTING PHYSICIAN: Dr. Lawson. REASON FOR CONSULTATION: Acute kidney injury. IMPRESSION: Acute kidney injury. This is likely hemodynamically-mediated prerenal acute kidney injury. PLAN: Hemodynamic support and maintenance of stable blood pressure, avoiding potentially nephrotoxic agents. I do believe that his renal function will rapidly correct back to baseline. HISTORY OF PRESENT ILLNESS: History is that of 85-year-old gentleman with history of hypertension, coronary artery disease, status post CABG, who presented here with chest pain from the referral from the transferring ER. The patient noted with elevated creatinine above his baseline normal creatinine level and has been experiencing some worsening shortness of breath for about 2 weeks prior to presentation. As a result of the elevated creatinine, decision was taken to involve Renal in the management of this case. ALLERGIES: TO PENICILLIN. PAST MEDICAL HISTORY: As documented in the body of history. FAMILY HISTORY: Not significantly related. SOCIAL HISTORY: Significant for tobacco use. No alcohol. No illicit drug use. REVIEW OF SYSTEMS: As documented in the body of history. All the other systems were reviewed and found not to be significantly related to present illness. PHYSICAL EXAMINATION: GENERAL: The patient was found not to be in any obvious distress. VITAL SIGNS: Noted with a pulse of 88, hemodynamically stable. HEENT: Unremarkable. CARDIOVASCULAR SYSTEM: First and second heart sounds were heard. RESPIRATORY SYSTEM: Clear to auscultation. EXTREMITIES: No peripheral edema. SKIN: No new gross rash. LYMPHATICS: No peripheral lymphadenopathy. SUMMARY: An 85-year-old gentleman, presented here status post chest pain and noted with slightly elevated creatinine, likely hemodynamically mediated. Thank you for this consultation. We will follow with you. Job ID: [id number]
[2020-12-14] MEDS: Simvastatin 40 MG TAB PO SCH (20:42)
[2020-12-14] MEDS: Ezetimibe 10 MG TAB PO SCH (20:42)
[2020-12-15 00:49] VITALS: BMI 25.4
[2020-12-15] MEDS ORDERED: FLU VACC QS2020-21(65YR UP)/PF 240 MCG/0.7 ML SYRINGE IM ONE (09:00)
[2020-12-15] MEDS: Spironolactone 25 MG TAB PO SCH (09:14)
[2020-12-15] MEDS: Dronedarone HCl 400 MG TAB PO SCH ×2 (09:14→15:29)
[2020-12-15] MEDS: Hydrochlorothiazide 25 MG TAB PO SCH (09:14)
[2020-12-15] MEDS: Aspirin 81 mg Enteric Coated Tablet PO SCH (09:14)
[2020-12-15] MEDS: Famotidine 20 MG TAB PO SCH ×2 (09:15→21:47)
[2020-12-15] MEDS: hydrALAZINE 25 MG TAB PO SCH ×3 (09:15→21:47)
[2020-12-15] MEDS: Apixaban 5 MG TAB PO SCH (09:16)
[2020-12-15] MEDS: Pantoprazole 40 MG GRANULES PACKET PO SCH ×2 (09:20→21:48)
--- NOTE | 2020-12-15 09:25 | PDOC.HOSPP ---
- Subjective Encounter Date: 12/15/20 Encounter Time: 12:00 Subjective: Patient denies any chest pain. He continues to have dyspnea on exertion. No other complaints. He is currently n.p.o. and awaiting his SHAKIR and cardioversion. - Objective Vital Signs & Weight: Vital Signs (12 hours) Temp Pulse Resp BP BP Pulse Ox 12/15/20 09:15 77 127/71 12/15/20 04:00 98.1 F 77 18 138/74 97 12/15/20 00:15 99 12/14/20 23:45 98.6 F 78 19 136/74 99 Weight Weight 158 lb Result Diagrams: 12/14/20 02:27 12/14/20 02:27 Hospitalist ROS - Review of Systems Constitutional: denies: fever, chills Respiratory: reports: SOB with excertion. denies: cough, shortness of breath Cardiovascular: denies: chest pain, palpitations Gastrointestinal: denies: nausea, vomiting, abdominal pain - Medication Medications: Active Medications Generic Name Dose Route Start Last Admin Trade Name Joelq PRN Reason Stop Dose Admin Apixaban 5 mg 12/14/20 09:00 12/15/20 09:16 Apixaban 5 Mg Tab PO 5 mg QAM HERNAN Administration Aspirin 81 mg 12/14/20 09:00 12/15/20 09:14 Aspirin 81 Mg Enteric Coated Tablet PO 81 mg DAILY HERNAN Administration Dronedarone 400 mg 12/14/20 17:00 12/15/20 09:14 Dronedarone Hcl 400 Mg Tab PO 400 mg BID-WM HERNAN Administration Ezetimibe 10 mg 12/14/20 21:00 12/14/20 20:42 Ezetimibe 10 Mg Tab PO 10 mg HS HERNAN Administration Famotidine 20 mg 12/14/20 09:00 12/15/20 09:15 Famotidine 20 Mg Tab PO 20 mg BID HERNAN Administration Hydralazine HCl 25 mg 12/14/20 09:00 12/15/20 09:15 Hydralazine 25 Mg Tab PO 25 mg TID HERNAN Administration Hydrochlorothiazide 25 mg 12/14/20 09:00 12/15/20 09:14 Hydrochlorothiazide 25 Mg Tab PO 25 mg DAILY HERNAN Administration Pantoprazole Sodium 40 mg 12/14/20 09:00 12/15/20 09:20 Pantoprazole 40 Mg Granules Packet PO Not Given BID HERNAN Simvastatin 40 mg 12/14/20 21:00 12/14/20 20:42 Simvastatin 40 Mg Tab PO 40 mg QPM HERNAN Administration Spironolactone 25 mg 12/14/20 09:00 12/15/20 09:14 Spironolactone 25 Mg Tab PO 25 mg DAILY HERNAN Administration Hospitalist Exam Vitals: Vital Signs (12 hours) Temp Pulse Resp BP BP Pulse Ox 12/15/20 09:15 77 127/71 12/15/20 04:00 98.1 F 77 18 138/74 97 12/15/20 00:15 99 12/14/20 23:45 98.6 F 78 19 136/74 99 Weight Weight 158 lb General Appearance: NAD, awake alert ENT: moist mucosa Heart: no murmur, no gallops, no rubs, irregular (Controlled rate) Respiratory: CTAB, no wheezes, no rales, no ronchi Gastrointestinal: soft, non-tender, non-distended, normal bowel sounds Extremities: no edema Psychiatric: normal affect, normal behavior, A&O x 3 Hosp A/P - Plan Chest painatypical May be due to GERD, but seems to happen when he is having A. fib runs Multiple recent negative stress test Possibly secondary to patient's A. fib Paroxysmal atrial fibrillation Dr. Landers has evaluated the patient, plan for SHAKIR and cardioversion today Mild troponin elevation may be due to post CABG Continue serial sets of cardiac enzymes Mild elevated BNP Given 1 dose Lasix Echocardiogram- EF 60-65%, severe concentric LVH, bioprosthetic valve in place Possible gastroesophageal reflux disease We will start PPI twice daily empirically Hypertensioncontrolled DVT prophylaxissubcutaneous Lovenox
[2020-12-15] MEDS ORDERED: PHENYLEPHRINE-NS 100 MCG/ML 10 ML SYRINGE ONE (13:36)
[2020-12-15] MEDS ORDERED: PROPOFOL 20 ML ONE (13:36)
--- NOTE | 2020-12-15 17:52 | PRG ---
DATE OF SERVICE: 12/15/2020 OBJECTIVE: VITAL SIGNS: The patient noted with the following vital signs; afebrile, temperature 98.1, pulse 77, respiratory rate of 18, blood pressure 130/74, O2 saturation 97%. HEENT: Unremarkable. CARDIOVASCULAR SYSTEM: First and second heart sounds were heard. RESPIRATORY SYSTEM: Clear to auscultation. DIGESTIVE SYSTEM: Benign abdomen. Positive bowel sounds. EXTREMITIES: No peripheral edema. SKIN: No new gross rash. LYMPHATICS: No peripheral lymphadenopathy. LABORATORY INVESTIGATION: BUN of 21 with creatinine of 1.1 as of yesterday's lab. IMPRESSION: 1. Acute on chronic kidney disease back to baseline. 2. Chest pain. 3. History of paroxysmal atrial fibrillation. PLAN: Continue current renal supportive measures. Job ID: [id number]
[2020-12-15] MEDS: Simvastatin 40 MG TAB PO SCH (21:48)
[2020-12-15] MEDS: Ezetimibe 10 MG TAB PO SCH (21:48)
--- NOTE | 2020-12-15 22:19 | EKG ---
Test Reason : POST CARDIOVERSION Blood Pressure : / mmHG Vent. Rate : 047 BPM Atrial Rate : 047 BPM P-R Int : 202 ms QRS Dur : 092 ms QT Int : 502 ms P-R-T Axes : 053 -53 270 degrees QTc Int : 444 ms Sinus bradycardia with sinus arrhythmia Right atrial enlargement Left anterior fascicular block Left ventricular hypertrophy with repolarization abnormality Abnormal ECG No previous ECGs available Confirmed by Tamiko ELLIS ([id number]) on 12/15/2020 10:18:42 PM Referred By: HOLA Confirmed By:Tamiko ELLIS
[2020-12-16 05:56] LABS: #Basophils 0.1 thou/uL (0.0-0.2); #Eosinphils 0.3 thou/uL (0.0-0.7); #Lymphocytes 2.1 thou/uL (1.20-3.40); #Monocytes 0.9 thou/uL (0.11-0.59); #Neutrophils 6.1 thou/uL (1.40-6.50); %Basophils 0.9 % (0.0-1.0); %Eosinophils 3.5 % (0.0-10.0); %Lymphocytes 22.3 % (21.0-51.0); %Monocytes 9.5 % (0.0-10.0); %Neutrophils 63.9 % (42.0-75.0); Hemoglobin 13.4 g/dL (14.0-18.0); Mean Corpuscular HGB CONC 33.7 g/dL (32.0-36.0); Mean Corpuscular Hemoglobin 32.7 pg (27.0-31.0); Mean Corpuscular Volume 97.1 fL (78.0-98.0); Mean Platelet Volume 7.8 fL (7.4-10.4); Platelet Count 205 thou/uL (130-400); RBC Distribution Width 11.4 % (11.5-14.5); White Blood Cell (WBC) Count 9.5 thou/uL (4.8-10.8)
[2020-12-16 06:20] LABS: Anion Gap 15 mmol/L (10-20); BUN (Urea Nitrogen) 36 mg/dL (8.4-25.7); Calc. Creatinine Clearance 32 mL/min (70-130); Carbon Dioxide 20 mmol/L (23-31); Chloride 105 mmol/L (98-107); Glucose 106 mg/dL (83-110); Potassium 4.1 mmol/L (3.5-5.1); Sodium 136 mmol/L (136-145)
--- NOTE | 2020-12-16 07:21 | OP ---
DATE OF PROCEDURE: 12/15/2020 PROCEDURE PERFORMED: Electrical cardioversion. INDICATION: An 85-year-old gentleman with paroxysmal atrial fibrillation. DESCRIPTION OF PROCEDURE: The patient was taken to the PACU. The patient was sedated by Anesthesiology. The patient was shocked with 200 joules of synchronized electricity. The patient converted to normal sinus rhythm. IMPRESSION: Successful electrical cardioversion. Job ID: [id number]
--- NOTE | 2020-12-16 07:24 | OP ---
DATE OF PROCEDURE: 12/15/2020 PROCEDURE PERFORMED: Transesophageal echocardiogram. INDICATIONS: An 85-year-old gentleman with a bioprosthetic aortic valve and mitral regurgitation. DESCRIPTION OF PROCEDURE: The patient was taken to the PACU. The patient was sedated by Anesthesiology. A transesophageal probe was placed into the distal esophagus and stomach. Echocardiographic images were obtained. Transesophageal probe was removed. FINDINGS: 1. Normal left ventricular systolic function. 2. Marked biatrial enlargement. 3. [id number] mitral regurgitation. 4. Mild tricuspid regurgitation. 5. Normal functioning bioprosthetic valve. 6. The left atrial appendage was well ligated. 7. Atherosclerotic debris in the descending aorta. IMPRESSION: [id number] mitral regurgitation with a normal functioning bioprosthetic valve and no formed thrombus in left atrium and a well-ligated left atrial appendage. Job ID: [id number]
--- NOTE | 2020-12-16 08:54 | PDOC.HOSPP ---
- Subjective Encounter Date: 12/16/20 Encounter Time: 10:50 Subjective: Patient without complaints this morning. He has been ambulating the hallway without any shortness of breath since his cardioversion. He is eager to go home. - Objective Vital Signs & Weight: Vital Signs (12 hours) Temp Pulse Resp BP BP Pulse Ox 12/16/20 08:06 97.9 F 50 L 24 H 142/64 H 99 12/16/20 04:00 98.5 F 52 L 16 140/63 99 12/16/20 01:06 98.3 F 61 16 123/60 97 Weight Weight 158 lb Result Diagrams: 12/16/20 05:46 12/16/20 05:46 Hospitalist ROS - Review of Systems Constitutional: denies: fever, chills Respiratory: denies: cough, shortness of breath Cardiovascular: denies: chest pain, palpitations Gastrointestinal: denies: nausea, vomiting, abdominal pain - Medication Medications: Active Medications Generic Name Dose Route Start Last Admin Trade Name Freq PRN Reason Stop Dose Admin Apixaban 5 mg 12/14/20 09:00 12/15/20 09:16 Apixaban 5 Mg Tab PO 5 mg QAM HERNAN Administration Aspirin 81 mg 12/14/20 09:00 12/15/20 09:14 Aspirin 81 Mg Enteric Coated Tablet PO 81 mg DAILY HERNAN Administration Dronedarone 400 mg 12/14/20 17:00 12/15/20 15:29 Dronedarone Hcl 400 Mg Tab PO 400 mg BID-WM HERNAN Administration Ezetimibe 10 mg 12/14/20 21:00 12/15/20 21:48 Ezetimibe 10 Mg Tab PO 10 mg HS HERNAN Administration Famotidine 20 mg 12/14/20 09:00 12/15/20 21:47 Famotidine 20 Mg Tab PO 20 mg BID HERNAN Administration Hydralazine HCl 25 mg 12/14/20 09:00 12/15/20 21:47 Hydralazine 25 Mg Tab PO 25 mg TID HERNAN Administration Hydrochlorothiazide 25 mg 12/14/20 09:00 12/15/20 09:14 Hydrochlorothiazide 25 Mg Tab PO 25 mg DAILY HERNAN Administration Pantoprazole Sodium 40 mg 12/14/20 09:00 12/15/20 21:48 Pantoprazole 40 Mg Granules Packet PO Not Given BID HERNAN Simvastatin 40 mg 12/14/20 21:00 12/15/20 21:48 Simvastatin 40 Mg Tab PO 40 mg QPM HERNAN Administration Spironolactone 25 mg 12/14/20 09:00 12/15/20 09:14 Spironolactone 25 Mg Tab PO 25 mg DAILY HERNAN Administration Hospitalist Exam Vitals: Vital Signs (12 hours) Temp Pulse Resp BP BP Pulse Ox 12/16/20 08:06 97.9 F 50 L 24 H 142/64 H 99 12/16/20 04:00 98.5 F 52 L 16 140/63 99 12/16/20 01:06 98.3 F 61 16 123/60 97 Weight Weight 158 lb General Appearance: NAD, awake alert ENT: moist mucosa Heart: RRR, no murmur, no gallops, no rubs Respiratory: CTAB, no wheezes, no rales, no ronchi Gastrointestinal: soft, non-tender, non-distended, normal bowel sounds Extremities: no edema Psychiatric: normal affect, normal behavior, A&O x 3 Hosp A/P - Plan Chest painatypical May be due to GERD, but seems to happen when he is having A. fib runs Multiple recent negative stress test Possibly secondary to patient's A. fib- s/p electrical cardioversion yesterday. Paroxysmal atrial fibrillation Dr. Landers has evaluated the patient, SHAKIR and cardioversion done yesterday -One limited run of Vtach last night, otherwise remaining in NSR Dr. Acuña with electrophysiology has been consulted Mild troponin elevation may be due to post CABG stable on recheck Acute renal failure Creatinine jumped to 1.7 today for unknown reasons after cardioversion Dr. Clement following, will ask for his advice on treatment. Mild elevated BNP Given 1 dose Lasix Echocardiogram- EF 60-65%, severe concentric LVH, bioprosthetic valve in place Possible gastroesophageal reflux disease PPI twice daily empirically Hypertensioncontrolled DVT prophylaxissubcutaneous Lovenox Disposition: Home when ok with cardiology
[2020-12-16] MEDS: Famotidine 20 MG TAB PO SCH (09:35)
[2020-12-16] MEDS: Apixaban 5 MG TAB PO SCH (09:35)
[2020-12-16] MEDS: Hydrochlorothiazide 25 MG TAB PO SCH (09:35)
[2020-12-16] MEDS: Aspirin 81 mg Enteric Coated Tablet PO SCH (09:35)
[2020-12-16] MEDS: Pantoprazole 40 MG GRANULES PACKET PO SCH ×2 (09:36→20:55)
[2020-12-16] MEDS: Spironolactone 25 MG TAB PO SCH (09:36)
[2020-12-16] MEDS: hydrALAZINE 25 MG TAB PO SCH ×3 (09:36→20:54)
[2020-12-16] MEDS ORDERED: Sodium Chloride 0.9% 500 ML IVPB SCH (09:45)
[2020-12-16] MEDS: Dronedarone HCl 400 MG TAB PO SCH ×2 (11:08→17:43)
[2020-12-16 13:01] LABS: Anion Gap 13 mmol/L (10-20); BUN (Urea Nitrogen) 36 mg/dL (8.4-25.7); Calc. Creatinine Clearance 32 mL/min (70-130); Calcium 9.1 mg/dL (7.8-10.44); Carbon Dioxide 24 mmol/L (23-31); Chloride 104 mmol/L (98-107); Glucose 123 mg/dL (83-110); Potassium 4.3 mmol/L (3.5-5.1); Sodium 137 mmol/L (136-145)
[2020-12-16] MEDS: Sodium Chloride 0.45% 1,000 ML IV SCH (17:49)
--- NOTE | 2020-12-16 19:07 | PRG ---
DATE OF SERVICE: 12/16/2020 SUBJECTIVE: The patient was seen and examined, no new complaint, noted with the following vital signs. OBJECTIVE: VITAL SIGNS: Afebrile, temperature 98.2, pulse 50, respiratory rate of 14, O2 saturation 100%, blood pressure 146/67. HEENT: Unremarkable. CARDIOVASCULAR SYSTEM: First and second heart sounds were heard. RESPIRATORY SYSTEM: Clear to auscultation. DIGESTIVE SYSTEM: Revealed a benign abdomen with positive bowel sounds. EXTREMITIES: No peripheral edema. SKIN: No new gross rash. LYMPHATICS: No peripheral lymphadenopathy. LABORATORY INVESTIGATION: Showed a creatinine of 1.79, BUN of 36. IMPRESSION: Acute on chronic kidney disease. This is likely hemodynamically mediated in the context of atrial fibrillation. PLAN: 1. Now that the patient is in sinus rhythm with its attendant improved cardiac output/renal perfusion, hopefully, we will begin to see the creatinine drop back to baseline. The recent creatinine of 1.79 is likely reflection of the hemodynamic issues with atrial fibrillation and its attendant poorly coordinated renal perfusion. 2. Renally dose all medications and avoid potentially nephrotoxic agents. 3. Further management to be dependent on the clinical course. Job ID: [id number]
[2020-12-16] MEDS: Simvastatin 40 MG TAB PO SCH (20:54)
[2020-12-16] MEDS: Ezetimibe 10 MG TAB PO SCH (20:55)
[2020-12-17 05:39] LABS: #Basophils 0.1 thou/uL (0.0-0.2); #Eosinphils 0.4 thou/uL (0.0-0.7); #Monocytes 0.8 thou/uL (0.11-0.59); #Neutrophils 5.2 thou/uL (1.40-6.50); %Basophils 0.9 % (0.0-1.0); %Eosinophils 4.9 % (0.0-10.0); %Lymphocytes 23.6 % (21.0-51.0); %Monocytes 9.7 % (0.0-10.0); %Neutrophils 60.9 % (42.0-75.0); Hemoglobin 11.9 g/dL (14.0-18.0); Mean Corpuscular HGB CONC 34.6 g/dL (32.0-36.0); Mean Corpuscular Hemoglobin 32.7 pg (27.0-31.0); Mean Corpuscular Volume 94.5 fL (78.0-98.0); Mean Platelet Volume 8.1 fL (7.4-10.4); Platelet Count 173 thou/uL (130-400); RBC Distribution Width 11.3 % (11.5-14.5); Red Blood Cell (RBC) Count 3.65 mill/uL (4.70-6.10); White Blood Cell (WBC) Count 8.5 thou/uL (4.8-10.8)
[2020-12-17 06:01] LABS: ALT (SGPT) 12 U/L (8-55); AST (SGOT) 15 U/L (5-34); Albumin 3.5 g/dL (3.4-4.8); Alkaline Phosphatase 87 U/L (40-110); Anion Gap 11 mmol/L (10-20); BUN (Urea Nitrogen) 31 mg/dL (8.4-25.7); Bilirubin, Total 1.1 mg/dL (0.2-1.2); Calc. Creatinine Clearance 35 mL/min (70-130); Calcium 8.1 mg/dL (7.8-10.44); Carbon Dioxide 21 mmol/L (23-31); Chloride 103 mmol/L (98-107); Globulin 2.6 g/dL (2.4-3.5); Glucose 108 mg/dL (83-110); Potassium 3.8 mmol/L (3.5-5.1); Protein, Total 6.1 g/dL (5.8-8.1); Sodium 131 mmol/L (136-145)
--- NOTE | 2020-12-17 06:22 | CON ---
DATE OF CONSULTATION: 12/16/2020 Dictated by July Florence, nurse practitioner, as a scribe for Dr. Paulino Acuña. REASON FOR CONSULTATION: Arrhythmia management, atrial fibrillation, nonsustained ventricular tachycardia. HISTORY OF PRESENT ILLNESS: I am seeing Mr. Inman for an electrophysiology consultation, inpatient on telemetry overflow. His current problems are; 1. Atrial fibrillation/flutter with RVR. a. Diagnosed approximately 5 years ago around the time of bypass transiently on Multaq. b. 12/15, SHAKIR-guided cardioversion, Multaq resumed. 2. History of coronary artery disease - 50% LAD, 99% RCA. a. CABG x1 vessel/RCA approximately 2015. 3. History of aortic stenosis, status post bioprosthetic aortic valve replacement. 4. Hypertension. 5. History of alcohol abuse, quit 2 months ago. 6. Preserved LVEF by echocardiogram on 12/15/2020, 62% by nuclear stress test on 02/04/2020, severe concentric LVH, [id number] MR, marked bilateral atrial enlargement, left atrial appendage ligation adequate confirmed with SHAKIR on 12/15. 7. Atypical chest pain. 8. CHADS-VASc score of 4 on the basis of age, hypertension, and cardiovascular disease, on Eliquis, but with documented closure of left atrial appendage via ligation at the time of CABG. 9. Nonsustained ventricular tachycardia. 10. Acute on chronic kidney disease. 11. Diastolic congestive heart failure. 12. Sinus bradycardia. SUBJECTIVE: Mr. Inman was experiencing significant increase in shortness of breath with no weight gain x3 to 4 days in addition to chest burning discomfort that was provoked by activity would last up to 30 minutes in duration. This is reportedly similar to the chest pain he felt prior to his bypass 4 to 5 years ago prompting him to seek out medical evaluation. He is found to be in atrial fibrillation with RVR and underwent cardioversion on 12/15/2020, restoring sinus rhythm, but he did come back as sinus bradycardia in the low 50s. He was placed on Multaq again for arrhythmia suppression, has maintained sinus rhythm since that time, but is seen to have nonsustained ventricular tachycardia, which is asymptomatic, prompting EP consultation. He endorses being on Eliquis at home, although admittedly only taking this once a day due to the expense. PAST MEDICAL HISTORY: As above. REVIEW OF SYSTEMS: Twelve-point review of systems unremarkable except that listed above in the HPI. HOME MEDICATION LIST: 1. Ezetimibe/simvastatin combo one q.p.m. 2. Nifedipine ER 30 mg daily. 3. Tenormin 100 mg q.a.m. 4. Aspirin 81 mg daily. 5. Eliquis 5 mg q.a.m. ALLERGIES: PENICILLINS. FAMILY HISTORY: Positive for coronary artery disease. Negative for sudden cardiac . SOCIAL HISTORY: Positive for long-term ongoing tobacco habituation, positive for history of alcohol abuse, but quit 2 months ago, negative for illicit drug use. OBJECTIVE: VITAL SIGNS: 5 feet and 6 inches, 158 pounds, BMI 25. Heart rate 98, pulse 52, blood pressure 164/70, respirations 18, and oxygen 100% on room air. GENERAL: The patient is alert and oriented. Speech is clear. Affect is appropriate. He is in no apparent distress. He is ambulatory throughout the room with no assistive device. Gait is stable. HEENT: Normocephalic and atraumatic. Sclerae are anicteric. EOMs are intact. Oral mucosa is moist and pink with adequate dentition. NECK: Supple without jugular venous distention. LUNGS: Clear to auscultation bilaterally without wheezes, crackles, or rhonchi. Respirations are even and unlabored. CARDIAC: Heart rate is irregularly irregular, though bradycardic with crisp S1 and S2. PMI is nondisplaced. ABDOMEN: Soft and nontender without palpable masses. Hepatojugular reflux is negative. EXTREMITIES: Warm and dry to touch. Well perfused without clubbing, cyanosis, or edema. NEUROLOGIC: Grossly intact and gait is stable. DATABASE: Telemetry and EKG show initially atrial fibrillation with RVR. Post cardioversion, sinus bradycardia at approximately 50 beats per minute with normal intervals. ECG suggestive of LVH. Two episodes of nonsustained ventricular tachycardia, monomorphic up to 10 beats in duration and asymptomatic are noted. Cardiac stress test negative for fixed reversible ischemia on 02/04/2020, LVEF 62%. LABORATORY DATA: Hematology unremarkable. Chemistry; potassium 4.3, creatinine 1.8, and magnesium 2.0. Liver enzymes within normal ranges. IMPRESSION: 1. Symptomatic atrial fibrillation, status post cardioversion plus Multaq, now in sinus bradycardia. 2. Nonsustained ventricular tachycardia. 3. Paroxysmal atrial tachycardia. 4. Chronic kidney disease. 5. CHADS-VASc score of 4 on OAC. PLAN AND RECOMMENDATIONS: Continue to monitor closely for ongoing bradycardia as he loads on Multaq. He may not be able to tolerate this medication long-term if his bradycardia worsens. He reports he has a history of heart rates in the 50s prior to admission while on atenolol. I would avoid further rate-controlling medications and we will arrange for a 2-week outpatient monitor after discharge. If unable to control with medications, we will consider PVAI. Given his structural heart disease, coronary artery disease, and acute on chronic kidney disease, his only alternate antiarrhythmic option at the moment would be amiodarone, but he also has smoked for a long time and reports possibly a history of COPD, so I would like to avoid this medication if at all possible. In regard to oral anticoagulation, he may continue at this time, although it is mentioned that he had his left atrial appendage surgically ligated at the time of bypass and a SHAKIR report from yesterday mentions his appendage is well closed via ligation. If ablation is pursued, he would require oral anticoagulation. Otherwise from an EP perspective, aspirin 81 mg daily would suffice. Currently, his kidney function and age qualify him for Eliquis 2.5 mg b.i.d. as adequate OAC. Should his kidney function recover to less than 1.6, he would once again require 5 mg b.i.d. if ablation is pursued. Thank you for allowing me to participate in the care of this patient. We will continue to follow and see him back as an outpatient and follow him through his hospital stay. Job ID: [id number]
[2020-12-17] MEDS: Sodium Chloride 0.45% 1,000 ML IV SCH (07:20)
--- NOTE | 2020-12-17 08:53 | PDOC.HOSPP ---
- Subjective Encounter Date: 12/17/20 Encounter Time: 11:45 Subjective: Patient reports no further shortness of breath. No chest pain. No other complaints. Patient is eager to go home. - Objective Vital Signs & Weight: Vital Signs (12 hours) Temp Pulse Resp BP Pulse Ox 12/17/20 04:00 98 F 53 L 14 136/60 98 12/17/20 00:00 98.0 F 54 L 16 134/63 99 Weight Weight 158 lb I&O: 12/16/20 12/17/20 12/18/20 06:59 06:59 06:59 Intake Total 1309 Balance 1309 Result Diagrams: 12/17/20 05:02 12/17/20 05:02 Hospitalist ROS - Review of Systems Constitutional: denies: fever, chills Respiratory: denies: cough, shortness of breath, SOB with excertion Cardiovascular: denies: chest pain, palpitations Gastrointestinal: denies: nausea, vomiting, abdominal pain - Medication Medications: Active Medications Generic Name Dose Route Start Last Admin Trade Name Antionette PRN Reason Stop Dose Admin Aspirin 81 mg 12/14/20 09:00 12/16/20 09:35 Aspirin 81 Mg Enteric Coated Tablet PO 81 mg DAILY HERNAN Administration Dronedarone 400 mg 12/14/20 17:00 12/16/20 17:43 Dronedarone Hcl 400 Mg Tab PO 400 mg BID-WM HERNAN Administration Ezetimibe 10 mg 12/14/20 21:00 12/16/20 20:55 Ezetimibe 10 Mg Tab PO 10 mg HS HERNAN Administration Hydralazine HCl 25 mg 12/14/20 09:00 12/16/20 20:54 Hydralazine 25 Mg Tab PO 25 mg TID HERNAN Administration Sodium Chloride 1,000 mls @ 75 mls/hr 12/16/20 16:45 12/17/20 07:20 1/2 Normal Saline IV 1,000 mls .[id number] HERNAN Administration Pantoprazole Sodium 40 mg 12/14/20 09:00 12/16/20 20:55 Pantoprazole 40 Mg Granules Packet PO Not Given BID HERNAN Simvastatin 40 mg 12/14/20 21:00 12/16/20 20:54 Simvastatin 40 Mg Tab PO 40 mg QPM HERNAN Administration Hospitalist Exam Vitals: Vital Signs (12 hours) Temp Pulse Resp BP Pulse Ox 12/17/20 04:00 98 F 53 L 14 136/60 98 12/17/20 00:00 98.0 F 54 L 16 134/63 99 Weight Weight 158 lb General Appearance: NAD, awake alert ENT: moist mucosa Heart: RRR, no murmur, no gallops, no rubs Respiratory: CTAB, no wheezes, no rales, no ronchi Gastrointestinal: soft, non-tender, non-distended, normal bowel sounds Extremities: no edema Psychiatric: normal affect, normal behavior, A&O x 3 Hosp A/P - Plan Chest painatypical May be due to GERD, but seems to happen when he is having A. fib runs Multiple recent negative stress test Possibly secondary to patient's A. fib- s/p electrical cardioversion yesterday. Paroxysmal atrial fibrillation Dr. Landers has evaluated the patient, SHAKIR and cardioversion done 12/15/2020 -One limited run of Vtach afterward, otherwise remaining in NSR Dr. Acuña with electrophysiology has been consulted- recommends attempting Multaq if no severe bradycardia, no need for anticoagulation beyond baby aspirin unless elect to do ablation. Mild troponin elevation may be due to post CABG stable on recheck Acute renal failure Creatinine jumped to 1.7 yesterday for unknown reasons after cardioversion Dr. Clement following. -Improving a bit today Mild elevated BNP Given 1 dose Lasix on admit Echocardiogram- EF 60-65%, severe concentric LVH, bioprosthetic valve in place Possible gastroesophageal reflux disease PPI twice daily empirically Hypertensioncontrolled DVT prophylaxissubcutaneous Lovenox Disposition: Home today per cardiology, and needs follow-up in [address] Landers and Dr. Acuña. Outpatient event monitor will be ordered by the senior windows systems engineer. Patient is going to go by Dr. Landers's office after leaving here to get samples of the Multaq.
[2020-12-17] MEDS ORDERED: Famotidine 20 MG TAB PO SCH (09:00)
[2020-12-17] MEDS ORDERED: Apixaban 2.5 MG TAB PO SCH (09:00)
[2020-12-17] MEDS: Pantoprazole 40 MG GRANULES PACKET PO SCH (09:50)
[2020-12-17] MEDS: Dronedarone HCl 400 MG TAB PO SCH (09:50)
[2020-12-17] MEDS: hydrALAZINE 25 MG TAB PO SCH (09:51)
[2020-12-17] MEDS: Aspirin 81 mg Enteric Coated Tablet PO SCH (09:54)
[2020-12-17 12:43] VITALS: BP 175/93; TEMP 97.3
--- NOTE | 2020-12-17 15:37 | PDOC.DS.DS ---
Provider Date of Admission: 12/14/20 16:51 Date of Discharge: 12/17/20 Admitting Provider: Dk Lawson MD Consultations: Cardiology (Dr. Landers), Nephrology (Dr. Clement), Electrophysiology (Dr. Acuña) Primary Care Physician: Letty Boucher MD Course Hospital Course: This is an 85-year-old white male with a history of paroxysmal atrial fibrillation, hypertension, coronary artery disease status post CABG 5 years ago, history of aortic valve replacement, and admission 2 weeks ago for chest pain with stress testing that was negative. He presented to the hospital with sudden onset of burning chest pain that woke him up from sleep. Also having palpitations and some shortness of breath with minimal exertion. Patient was evaluated in the emergency room, found to have a mildly elevated troponin and he was admitted and Dr. Landers was consulted. Patient reported that his chest pain was mostly when he had palpitations and his heart rate is elevated. As a result Dr. Landers did a SHAKIR and then electrical cardioversion. Patient's heart went into normal sinus rhythm after this he had no more chest pains and no more dyspnea on exertion. Dr. Acuña with electrophysiology was consulted. Patient did have a bump in his creatinine after his cardioversion. Dr. Clement was consulted and followed him through the hospitalization. His creatinine was improving at the time of discharge but his Eliquis was decreased to 2.5 twice a day due to the lower GFR. Patient is being discharged to follow- up as an outpatient with both Dr. Landers and Dr. Acuña Pertinent Studies: Echocardiogram Findings: 1. Ejection fraction 65 to 70% 2. Severe concentric left ventricular hypertrophy 3. Bioprosthetic aortic valve not well visualized Transesophageal echocardiogram Findings: 1. Normal ejection fraction 2. Left atrial appendage well ligated 3. Normal functioning bioprosthetic valve 4. No thrombus in left atrium Procedures: Electrical cardioversion Successfully returned patient to normal sinus rhythm Resuscitation Status: 12/14/20 00:44 Resuscitation Status Routine Resuscitation Status: FULL: Full Resuscitation Lab Results: 12/17/20 05:02 12/17/20 05:02 Abnormal Lab Results - Last 48 hrs 12/16/20 05:46: Carbon Dioxide 20 L, BUN 36 H, Creatinine 1.75 H 12/16/20 05:46: RBC 4.10 L, Hgb 13.4 L, Hct 39.8 L, MCH 32.7 H, RDW 11.4 L, Monocytes # 0.9 H 12/16/20 12:22: BUN 36 H, Creatinine 1.79 H 12/17/20 05:02: Sodium 131 L, Carbon Dioxide 21 L, BUN 31 H, Creatinine 1.61 H 12/17/20 05:02: RBC 3.65 L, Hgb 11.9 L, Hct 34.5 L, MCH 32.7 H, RDW 11.3 L, Monocytes # 0.8 H Vitals: Vital Signs (12 hours) Temp Pulse Resp BP Pulse Ox 12/17/20 12:42 97.3 F L 57 L 16 175/93 H 97 12/17/20 10:00 98 12/17/20 07:40 97.5 F L 45 L 17 141/65 H 98 12/17/20 04:00 98 F 53 L 14 136/60 98 Weight Weight 158 lb Physical Exam: The patient was seen and examined on the day of discharge. Problem Assessment: Chest painatypical, resolved Paroxysmal atrial fibrillationstatus post electrical cardioversion Type II acute myocardial infarction Acute renal failure Mild elevated BNP Gastroesophageal reflux disease Hypertension Plan of Treatment: Patient has been started on Multaq. He will need to follow-up with Dr. Landers in his clinic and with Dr. Acuña in 2 weeks. Cardiology will arrange for him to have an event monitor at home. Time Spent in discharge related activities (mins): 32 Plan Prescriptions: hydrALAZINE [Apresoline] 25 mg PO TID #90 tab Apixaban [Eliquis] 2.5 mg PO BID #60 tab Dronedarone HCl [Multaq] 400 mg PO BID-WM #60 tab Home Medications: Medication Instructions Recorded Confirmed Type Aspirin [Ecotrin Low Strength] 81 mg PO DAILY tab 09/11/19 12/15/20 Rx Ezetimibe/Simvastatin 1 each PO QPM 06/11/20 12/15/20 History [Ezetimibe-Simvastatin 10-40 mg] Apixaban [Eliquis] 2.5 mg PO BID #60 tab 12/17/20 Rx Dronedarone HCl [Multaq] 400 mg PO BID-WM #60 tab 12/17/20 Rx hydrALAZINE [Apresoline] 25 mg PO TID #90 tab 12/17/20 Rx Allergies: Penicillins Allergy (Unknown, Verified 06/11/20 10:19) Childhood allergy, reaction unknown Activity:: Activity as Tolerated Nourishment:: Heart Healthy Diet, Low Sodium Diet Therapies:: Not Applicable Equipment/Supplies:: Not Applicable IV Therapy:: Not Applicable Referrals: Letty Boucher MD [Primary Care Provider] - 7 Days (Please call your primary care physician within a week to set up a follow up appointment in order to recheck your BMP lab. ) Ludin Landers MD [Active] - 14 Days (Please call Dr. Landers's office to verify your 2 week follow up appointment.) Paulino Acuña MD [Sailboat Captain] - 14 Days (Please call Dr. Acuña's office within 2 weeks to set up a follow up appointment.) Disposition: HOME Quality CORE MEASURES:: N/A
--- NOTE | 2020-12-17 17:22 | PDOC.EP ---
- Subjective Date: 12/17/20 Time: 08:00 Interval History: feels well. Likely DC today. Asymptomatic with bradycardia - Review of Systems Constitutional: denies: chills, fever, malaise, sweats, weakness, other Respiratory: denies: cough, dry, hemoptysis, pleuritic pain, shortness of breath, SOB with excertion, sputum, wheezing, other Cardiology: denies: chest pain, edema, heart racing, light headedness, paroxysmal noc. dyspnea, orthopnea, palpitations, passing out, pleuritic pain, pressure, swelling, other Gastrointestinal: denies: abdominal pain, constipation, diarrhea, hematochezia, melena, nausea, vomitting, other Musculoskeletal: denies: unstable gait, falls, neck pain, shoulder pain, arm pain, hand pain, leg pain, foot pain, other - Objective Allergies/Adverse Reactions: Allergies Allergy/AdvReac Type Severity Reaction Status Date / Time Penicillins Allergy Unknown Verified 06/11/20 10:19 Vital Signs & Weight: Vital Signs Temp Pulse Resp BP Pulse Ox 12/17/20 12:42 97.3 F L 57 L 16 175/93 H 97 12/17/20 10:00 98 12/17/20 07:40 97.5 F L 45 L 17 141/65 H 98 Weight 158 lb I/O: I/O 12/16/20 12/17/20 12/18/20 06:59 06:59 06:59 Intake Total 1309 Balance 1309 - Quality Measures Condition: Atrial Fibrillation/Flutter (hx or current) CV meds: Eliquis: Yes - Medication Contraindications No Anticoagulant reason: Treatment not indicated (JOSE ANTONIO ligated adequately. ASA 81mg daily will suffice) - Physical Exam General: alert & oriented x3, appears well, no apparent distress, speech clear, affect appropriate HEENT: mucus membranes moist, normocephaly Neck: supple neck, midline trachea, no JVD/HJR, no masses, no bruit, no lymphadenopathy, no thromegaly Cardiology: regular rate and rhythm, no murmur, regular rhythm, PMI nondisplaced, bradycardia Lungs: clear to auscultation, normal breath sounds, no wheeze, rales, rhonchi Neurology: cranial nerve 2-12 intact, grossly intact, no lateralizing findings - Labs Result Diagrams: 12/17/20 05:02 12/17/20 05:02 - EKG Interpretation EKG Method: Telemetry EKG shows: Sinus bradycardia - Assessment/Plan Assessment/Plan: IMPRESSION: 1. Symptomatic atrial fibrillation, status post cardioversion plus Multaq, now in sinus bradycardia. 2. Nonsustained ventricular tachycardia. 3. Paroxysmal atrial tachycardia. 4. Chronic kidney disease. 5. CHADS-VASc score of 4 on OAC. 6. Asymptomatic bradycardia OK for DC by EP on multaq 400mg BID. will arrange outpatient monitor and follow up appt. JOSE ANTONIO adequately closed by recent SHAKIR read. Can go on ASA 82mg daily alone for CVA prevention, discussed with cardiology. avoid further rate control agents as VR in low 50s. Alt AAD is amiodarone is not ideal correction with his long smoking hx. Consider ablation if multaq fails/not tolerated.
--- NOTE | 2020-12-17 20:58 | EKG ---
Test Reason : Blood Pressure : / mmHG Vent. Rate : 049 BPM Atrial Rate : 049 BPM P-R Int : 206 ms QRS Dur : 090 ms QT Int : 510 ms P-R-T Axes : 056 -64 -58 degrees QTc Int : 460 ms Marked sinus bradycardia with Premature atrial complexes Left anterior fascicular block Left ventricular hypertrophy with repolarization abnormality Abnormal ECG When compared with ECG of 15-DEC-2020 14:29, Premature atrial complexes are now Present Confirmed by Tamiko ELLIS ([id number]) on 12/17/2020 8:58:12 PM Referred By: HOLA Confirmed By:Tamiko ELLIS
== END 2020-12-17 13:35 | disposition home or self-care (01) | DRG 281 ==
LOC: ERS 19:40 → ERHOLD 22:52 → OBSVTOIN 12-14 16:51 → 3SE 12-15 00:01
PROVIDERS: ADMIT Internal Medicine; ATTEND Emergency Medicine
PROC: 5A2204Z Restoration of Cardiac Rhythm, Single (ICD-10-PCS; principal; 2020-12-15)
PROC: B24BZZ4 Ultrasonography of Heart with Aorta, Transesophageal (ICD-10-PCS; 2020-12-15)
DX: I48.0 Paroxysmal atrial fibrillation (principal); I21.A1 Myocardial infarction type 2; I13.0 Hypertensive heart and chronic kidney disease with heart failure and stage 1 through stage 4 chronic kidney disease, or unspecified chronic kidney disease; N17.9 Acute kidney failure, unspecified; I50.32 Chronic diastolic (congestive) heart failure; I47.1 Supraventricular tachycardia; Z20.822 Contact with and (suspected) exposure to COVID-19; F17.210 Nicotine dependence, cigarettes, uncomplicated; I25.10 Atherosclerotic heart disease of native coronary artery without angina pectoris; R77.8 Other specified abnormalities of plasma proteins; J43.9 Emphysema, unspecified; N18.9 Chronic kidney disease, unspecified; K21.9 Gastro-esophageal reflux disease without esophagitis; Z95.1 Presence of aortocoronary bypass graft; Z95.2 Presence of prosthetic heart valve; Z88.0 Allergy status to penicillin; Z79.01 Long term (current) use of anticoagulants; Z79.82 Long term (current) use of aspirin; Z79.51 Long term (current) use of inhaled steroids; Z79.899 Other long term (current) drug therapy
CPT/HCPCS: 36415; 80048; 80053; 82553; 83735; 84484; 85007; 85025; 85027; 87635; 92960; 93005; 93010; 93306; 93312; 94760; 96374; 96376; G0378; J1940; J2704; J7030; U0003; U0005

== ENCOUNTER 2021-03-08 19:58 | Emergency (ER) | payer MEDICARE | END 2021-03-08 21:38 | disposition home or self-care (01) | LOC: ERS 19:58 | DX: J18.9 Pneumonia, unspecified organism (principal); I25.10 Atherosclerotic heart disease of native coronary artery without angina pectoris; F17.210 Nicotine dependence, cigarettes, uncomplicated | CPT/HCPCS: 71046 ==

== ENCOUNTER 2021-04-17 10:40 | Inpatient (IN) | payer MEDICARE ==
[2021-04-17 11:03] LABS: #Eosinphils 0.2 thou/uL (0.0-0.7); #Lymphocytes 1.9 thou/uL (1.20-3.40); #Monocytes 1.2 thou/uL (0.11-0.59); #Neutrophils 7.8 thou/uL (1.40-6.50); %Basophils 0.3 % (0.0-1.0); %Eosinophils 2.1 % (0.0-10.0); %Lymphocytes 17.2 % (21.0-51.0); %Monocytes 10.6 % (0.0-10.0); %Neutrophils 69.8 % (42.0-75.0); Hemoglobin 13.8 g/dL (14.0-18.0); Mean Corpuscular HGB CONC 34.4 g/dL (32.0-36.0); Mean Corpuscular Hemoglobin 33.2 pg (27.0-31.0); Mean Corpuscular Volume 96.6 fL (78.0-98.0); Mean Platelet Volume 8.1 fL (7.4-10.4); Platelet Count 202 thou/uL (130-400); RBC Distribution Width 11.7 % (11.5-14.5); Red Blood Cell (RBC) Count 4.17 mill/uL (4.70-6.10); White Blood Cell (WBC) Count 11.2 thou/uL (4.8-10.8)
[2021-04-17] MEDS ORDERED: Aspirin Chewable 81 MG TAB ONE (11:39)
[2021-04-17] MEDS ORDERED: Nitroglycerin 2% Ointment 1 INCH/1 GM Packet ONE (11:39)
[2021-04-17 11:40] LABS: ALT (SGPT) 10 U/L (8-55); AST (SGOT) 14 U/L (5-34); Albumin 4.2 g/dL (3.4-4.8); Alkaline Phosphatase 106 U/L (40-110); BUN (Urea Nitrogen) 16 mg/dL (8.4-25.7); Bilirubin, Total 0.9 mg/dL (0.2-1.2); Calc. Creatinine Clearance 0 mL/min (70-130); Calcium 9.2 mg/dL (7.8-10.44); Glucose 107 mg/dL (83-110); Lipase 21 U/L (8-78)
[2021-04-17 11:42] LABS: Chloride 102 mmol/L (98-107); Potassium 4.8 mmol/L (3.5-5.1); Sodium 144 mmol/L (136-145)
[2021-04-17 12:10] LABS: Globulin 2.9 g/dL (2.4-3.5); Protein, Total 7.1 g/dL (5.8-8.1)
[2021-04-17] MEDS ORDERED: Magnesium 2 GM/50 ML BAG (IN WATER) ONE (13:20)
[2021-04-17] MEDS ORDERED: Metoprolol Tartrate 5 MG/5 ML VIAL IVP SCH (13:46)
[2021-04-17] MEDS ORDERED: Acetaminophen 325 MG TAB PO PRN (13:47)
[2021-04-17] MEDS ORDERED: Acetaminophen 650 MG Suppository PR PRN (13:47)
[2021-04-17] MEDS ORDERED: Metoprolol Tartrate 5 MG/5 ML VIAL ONE (13:52)
[2021-04-17] MEDS ORDERED: Aspirin 325 MG TAB PO SCH (14:00)
[2021-04-17] MEDS ORDERED: Lidocaine 2% Viscous Solution 10 ML, Aluminum & Magnesium Hydroxide 30 ML SSW SCH (14:00)
[2021-04-17] MEDS ORDERED: Morphine 2 MG/ML VIAL SLOW IVP SCH (14:00)
[2021-04-17 15:09] LABS: Troponin I Less than 0.010 ng/mL (< 0.028)
[2021-04-17] MEDS: Nitroglycerin 2% Ointment 1 INCH/1 GM Packet TOP SCH ×2 (15:51→22:58)
[2021-04-17] MEDS: Dronedarone HCl 400 MG TAB PO SCH (16:43)
[2021-04-17 17:20] LABS: Anion Gap 23 mmol/L (10-20); Carbon Dioxide 16 mmol/L (23-31)
[2021-04-17 18:10] LABS: Troponin I 0.025 ng/mL (< 0.028)
[2021-04-17] MEDS ORDERED: Communication Order-Pharmacy FS SCH (18:19)
[2021-04-17] MEDS ORDERED: Enoxaparin Sodium 80 MG/0.8 ML SYRINGE SC SCH (21:00)
[2021-04-18 05:15] LABS: #Basophils 0.1 thou/uL (0.0-0.2); #Eosinphils 0.2 thou/uL (0.0-0.7); #Lymphocytes 2.6 thou/uL (1.20-3.40); #Monocytes 1.2 thou/uL (0.11-0.59); #Neutrophils 6.3 thou/uL (1.40-6.50); %Basophils 0.6 % (0.0-1.0); %Lymphocytes 24.9 % (21.0-51.0); %Monocytes 11.6 % (0.0-10.0); Hemoglobin 12.8 g/dL (14.0-18.0); Mean Corpuscular HGB CONC 34.8 g/dL (32.0-36.0); Mean Corpuscular Hemoglobin 33.4 pg (27.0-31.0); Mean Corpuscular Volume 95.9 fL (78.0-98.0); Mean Platelet Volume 8.2 fL (7.4-10.4); Platelet Count 188 thou/uL (130-400); RBC Distribution Width 11.7 % (11.5-14.5); Red Blood Cell (RBC) Count 3.83 mill/uL (4.70-6.10); White Blood Cell (WBC) Count 10.3 thou/uL (4.8-10.8)
[2021-04-18 05:35] LABS: Anion Gap 13 mmol/L (10-20); BUN (Urea Nitrogen) 24 mg/dL (8.4-25.7); Calc. Creatinine Clearance 41 mL/min (70-130); Calcium 8.8 mg/dL (7.8-10.44); Carbon Dioxide 23 mmol/L (23-31); Chloride 105 mmol/L (98-107); Glucose 100 mg/dL (83-110); Potassium 4.4 mmol/L (3.5-5.1); Sodium 137 mmol/L (136-145)
[2021-04-18] MEDS: Nitroglycerin 2% Ointment 1 INCH/1 GM Packet TOP SCH (05:41)
[2021-04-18] MEDS: Dronedarone HCl 400 MG TAB PO SCH ×2 (08:38→16:01)
[2021-04-18] MEDS: Aspirin Chewable 81 MG TAB PO SCH (08:38)
[2021-04-18] MEDS: Spironolactone 25 MG TAB PO SCH (08:39)
[2021-04-18] MEDS: Atenolol 50 MG TAB PO SCH (08:39)
[2021-04-18] MEDS: Hydrochlorothiazide 25 MG TAB PO SCH (08:39)
[2021-04-18] MEDS ORDERED: Furosemide 40 MG TAB PO PRN (08:40)
[2021-04-18] MEDS ORDERED: Aspirin 81 mg Enteric Coated Tablet PO SCH (09:00)
[2021-04-18] MEDS: Apixaban 5 MG TAB PO SCH ×2 (10:20→20:01)
[2021-04-18] MEDS: hydrALAZINE 25 MG TAB PO SCH ×3 (10:20→20:01)
[2021-04-18] MEDS ORDERED: Ipratropium Bromide 2.5 ml Neb NEB PRN (15:05)
[2021-04-18] MEDS: Ezetimibe 10 MG TAB PO SCH (20:02)
[2021-04-18] MEDS: Atorvastatin Calcium 20 MG TAB PO SCH (20:02)
[2021-04-18] MEDS: Levalbuterol HCl 0.63 MG/3 ML NEB NEB SCH (23:25)
[2021-04-19 05:11] LABS: #Eosinphils 0.1 thou/uL (0.0-0.7); #Lymphocytes 1.7 thou/uL (1.20-3.40); #Monocytes 1.1 thou/uL (0.11-0.59); #Neutrophils 8.8 thou/uL (1.40-6.50); %Basophils 0.1 % (0.0-1.0); %Lymphocytes 14.5 % (21.0-51.0); %Monocytes 9.7 % (0.0-10.0); %Neutrophils 74.7 % (42.0-75.0); Hemoglobin 13.1 g/dL (14.0-18.0); Mean Corpuscular HGB CONC 34.3 g/dL (32.0-36.0); Mean Corpuscular Hemoglobin 32.7 pg (27.0-31.0); Mean Corpuscular Volume 95.4 fL (78.0-98.0); Mean Platelet Volume 8.4 fL (7.4-10.4); Platelet Count 211 thou/uL (130-400); RBC Distribution Width 11.7 % (11.5-14.5); White Blood Cell (WBC) Count 11.8 thou/uL (4.8-10.8)
[2021-04-19 05:30] LABS: Anion Gap 16 mmol/L (10-20); BUN (Urea Nitrogen) 31 mg/dL (8.4-25.7); Calc. Creatinine Clearance 38 mL/min (70-130); Calcium 8.8 mg/dL (7.8-10.44); Carbon Dioxide 16 mmol/L (23-31); Cardiac Risk 5.1 (Less than 4.5); Chloride 105 mmol/L (98-107); Cholesterol 183 mg/dl (< 200 Desired); Glucose 118 mg/dL (83-110); HDL Cholesterol 36 mg/dL (>60 Neg Risk); LDL Cholesterol, Calculated 130 mg/dL; Sodium 133 mmol/L (136-145); Triglycerides 83 mg/dL (Less than 150)
[2021-04-19] MEDS: Levalbuterol HCl 0.63 MG/3 ML NEB NEB SCH ×3 (07:04→22:16)
[2021-04-19] MEDS: Dronedarone HCl 400 MG TAB PO SCH ×2 (08:51→17:30)
[2021-04-19] MEDS: Aspirin Chewable 81 MG TAB PO SCH (08:51)
[2021-04-19] MEDS: Apixaban 5 MG TAB PO SCH ×2 (08:51→21:13)
[2021-04-19] MEDS: Hydrochlorothiazide 25 MG TAB PO SCH (08:52)
[2021-04-19] MEDS: Spironolactone 25 MG TAB PO SCH (08:52)
[2021-04-19] MEDS: hydrALAZINE 25 MG TAB PO SCH ×3 (08:52→21:12)
[2021-04-19] MEDS: Atenolol 50 MG TAB PO SCH (08:52)
[2021-04-19] MEDS ORDERED: PROPOFOL 20 ML ONE (14:18)
[2021-04-19 16:51] VITALS: BMI 25.2
[2021-04-19] MEDS: Ezetimibe 10 MG TAB PO SCH (21:12)
[2021-04-19] MEDS: Atorvastatin Calcium 20 MG TAB PO SCH (21:13)
[2021-04-20] MEDS: Levalbuterol HCl 0.63 MG/3 ML NEB NEB SCH ×3 (07:36→22:20)
[2021-04-20] MEDS: NIFEdipine XL 30 MG TAB PO SCH (08:35)
[2021-04-20] MEDS: Aspirin Chewable 81 MG TAB PO SCH (08:36)
[2021-04-20] MEDS: Spironolactone 25 MG TAB PO SCH (08:36)
[2021-04-20] MEDS: Hydrochlorothiazide 25 MG TAB PO SCH (08:36)
[2021-04-20] MEDS: Atenolol 50 MG TAB PO SCH (08:37)
[2021-04-20] MEDS: Dronedarone HCl 400 MG TAB PO SCH ×2 (08:37→16:56)
[2021-04-20] MEDS: Apixaban 5 MG TAB PO SCH ×2 (08:37→20:57)
[2021-04-20] MEDS ORDERED: Metoprolol Tartrate 5 MG/5 ML VIAL IVP SCH (12:00)
[2021-04-20] MEDS: Atorvastatin Calcium 20 MG TAB PO SCH (20:56)
[2021-04-20] MEDS: Ezetimibe 10 MG TAB PO SCH (20:57)
[2021-04-21 04:50] LABS: Hemoglobin 12.5 g/dL (14.0-18.0); Platelet Count 202 thou/uL (130-400)
[2021-04-21] MEDS: Levalbuterol HCl 0.63 MG/3 ML NEB NEB SCH ×3 (07:24→21:46)
[2021-04-21] MEDS ORDERED: PROPOFOL 200 MG/20 ML VIAL ONE (08:08)
[2021-04-21] MEDS ORDERED: Lidocaine 1% PF 5 ML VIAL ONE (08:08)
[2021-04-21] MEDS: NIFEdipine XL 30 MG TAB PO SCH (09:23)
[2021-04-21] MEDS: Dronedarone HCl 400 MG TAB PO SCH (09:23)
[2021-04-21] MEDS: Atenolol 50 MG TAB PO SCH ×2 (09:23→15:36)
[2021-04-21] MEDS: Spironolactone 25 MG TAB PO SCH (09:23)
[2021-04-21] MEDS: Hydrochlorothiazide 25 MG TAB PO SCH (09:23)
[2021-04-21] MEDS: Aspirin Chewable 81 MG TAB PO SCH (09:24)
[2021-04-21] MEDS: Apixaban 5 MG TAB PO SCH ×2 (09:24→20:35)
[2021-04-21] MEDS: Atorvastatin Calcium 20 MG TAB PO SCH (20:35)
[2021-04-21] MEDS: Ezetimibe 10 MG TAB PO SCH (20:35)
[2021-04-22] MEDS: Levalbuterol HCl 0.63 MG/3 ML NEB NEB SCH (07:43)
[2021-04-22 07:58] VITALS: BP 129/78; TEMP 98.9
[2021-04-22] MEDS: Hydrochlorothiazide 25 MG TAB PO SCH (10:04)
[2021-04-22] MEDS: Apixaban 5 MG TAB PO SCH (10:04)
[2021-04-22] MEDS: Spironolactone 25 MG TAB PO SCH (10:04)
[2021-04-22] MEDS: Aspirin Chewable 81 MG TAB PO SCH (10:04)
[2021-04-22] MEDS: Atenolol 50 MG TAB PO SCH (10:04)
== END 2021-04-22 11:40 | disposition home or self-care (01) | DRG 309 ==
LOC: ERS 10:40 → 2NO 13:29 → OBSVTOIN 04-19 10:48
PROVIDERS: ADMIT Family Medicine; ATTEND Internal Medicine
PROC: 5A2204Z Restoration of Cardiac Rhythm, Single (ICD-10-PCS; principal; 2021-04-19)
PROC: 5A2204Z Restoration of Cardiac Rhythm, Single (ICD-10-PCS; 2021-04-21)
DX: I48.0 Paroxysmal atrial fibrillation (principal); N17.9 Acute kidney failure, unspecified; J44.1 Chronic obstructive pulmonary disease with (acute) exacerbation; I13.0 Hypertensive heart and chronic kidney disease with heart failure and stage 1 through stage 4 chronic kidney disease, or unspecified chronic kidney disease; I47.2 Ventricular tachycardia; E78.5 Hyperlipidemia, unspecified; F17.210 Nicotine dependence, cigarettes, uncomplicated; I25.10 Atherosclerotic heart disease of native coronary artery without angina pectoris; N18.30 Chronic kidney disease, stage 3 unspecified; R07.81 Pleurodynia; I50.9 Heart failure, unspecified; Z88.0 Allergy status to penicillin; Z95.1 Presence of aortocoronary bypass graft; I25.2 Old myocardial infarction; Z79.82 Long term (current) use of aspirin; Z79.899 Other long term (current) drug therapy
CPT/HCPCS: 36415; 71045; 80048; 80053; 80061; 83690; 83880; 84443; 84484; 85014; 85018; 85025; 85049; 85379; 92960; 93005; 93010; 93306; 94640; 94760; 96365; 96372; 96375; G0378; J1650; J2704; J3475; J7614